=== PATIENT | male | born 2000 | race Caucasian/White ===

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

== ENCOUNTER 2023-03-09 13:15 | Emergency (ER) | payer SELFPAY ==
--- OUTSIDE RECORDS SUMMARY | 2023-03-09 13:18 | XMS REPORT | Continuity of Care Document ---
:2000 Author Organization [facility] t Address [address] [place] [address] Care Team Providers Name Role Phone Unavailable Unavailable Unavailable Payers Payer Name Policy Type Policy Number Effective Date Expiration Date S ource Problems This patient has no known problems. Allergies, Adverse Reactions, Alerts Allergy Allergy Status Severity Reaction(s) Onset Inactive Treating Comm ents Source Name Type Date Date Clinician Penicill DA Active U [facility] ins 09-16 [facility] 00:00: [facility] [place] Medications This patient has no known medications. Procedures This patient has no known procedures. Results This patient has no known results. Notes Date/Time Note Provider Source 2018-09-17 10:49:00-00:00 [id number] [facility] [address], [place] [address] PATIENT NAME: KEVIN CHOWDARY ADMIT DATE: 09/16/18 ACCOUNT NO: [id number] ROOM NO: F.5062 AGE: 18 SEX: M ADMITTING PHYSICIAN: Radha Villalpando MD ATTENDING PHYSICIAN: Radha Villalpando MD DATE: 09/17/2018 PEDIATRIC OTOLARYNGOLOGY PROGRESS NOTE POSTOPERATIVE DAY #1 BRIEF HISTORY: Kevin has don e well overnight after incision and drainage of his very large nearly obstructin g right peritonsillar abscess yesterday evening. He feels vastly better, is swal lowing well now and has really needed very little in the way of pain medicines. PHYSICAL EXAMINATION: There is still some fullne ss on the right, but he has a vastly better airway and now he is swall owing all secretions and he is healing well. His vital signs are stable and he is afebr ile. IMPRESSION: Excellent postoperative course, stat us post incision and drainage of a very large right peritonsillar abscess. PLAN: He can be discharged today after his next dose of dexamethasone. He should go home on oral clindamycin to complete a 10-day course. I have recommended follow up in my office in a month's time and his parents have our contact phone number. He can resume normal activ ities and normal diet as tolerated. Dictated By: Dallas Dinero III, MD WT: PN:MEGHA/ELSA. Conf#: [id number]/DID#: [id number] Authenticated by Dallas Dinero MD On 09/29/19 06:10:52 PM at 1811 PATIENT NAME: KEVIN CHOWDARY ACCOUNT #: [id number] 2018-09-16 17:01:00-00:00 [id number] [facility] [address] [address] PATIENT NAME: KEVIN CHOWDARY ADMIT DATE: 09/16/18 ACCOUNT NO: [id number] ROOM NO: Replaced By [facility] AGE: 18 SEX: M ADMITTING PHYSICIAN: Radha Villalpando MD ATTENDING PHYSICIAN: Radha Villalpando MD OPERATION DATE: 09/16/2018 PREOPERATIVE DIAGNOSIS: Large right peritonsilla r abscess. POSTOPERATIVE DIAGNOSIS: Large right peritonsill ar abscess. PROCEDURE PERFORMED: Incision and drainage of ri ght peritonsillar abscess. SURGEON: Dallas Dinero III, MD APPLIANCE REPAIRER: ANESTHESIA: General anesthesia. COMPLICATIONS: No complications. ESTIMATED BLOOD LOSS: Less than 5 mL. SPECIMENS: Aerobic culture, right peritonsillar abscess. INDICATIONS: The patient is a 18-year-old with a 5- to 8-day history of progressively worsening sore throat. He was star roe on Zithromax, but did not improve. He was evaluated at the [facility] in [place], but none of the 3 ear, nose, and throat surgeons in [place] were available to care for this youngster. Therefore, he was tr ansferred to the [facility]. A preoperative CT scan showed a large right peritonsillar abscess. He has not had a history of recurring t onsillitis or tonsil problems in the past. FINDINGS: Huge right peritonsillar abscess that was already slightly draining with a necrotic right tonsil. His opposite tonsi l was rather normal. He did have some impending airway issues with the size of this abscess. Large right peritonsillar abscess with nearly compromised or opharynx. PROCEDURE IN DETAIL: After satisfactory inductio n of general anesthesia and endotracheal intubation, he was draped in the us ual fashion. The McIvor mouth gag was inserted and suspended. A 1% lidocaine w ith 1:100,000 epinephrine was infiltrated in the right superior anterior perit onsillar area. Using a 15 blade, a 1-cm incision was m ruthie in the right anterior superior tonsillar pillar area. Using a gently curved packed clamp, this w as probed and immediately a copious amount of mucopurulent secretions were o btained. These were cultured. The abscess cavity and oral cavity were copiousl y irrigated with saline solution. Jack sump tube was passed thr ough the esophagus into the stomach to PATIENT NAME: KEVIN CHOWDARY ACCOUNT #: [id number] drain stomach contents. Good hemostasis was pres ent. He was awakened from general anesthesia and extubated in the operating room. He tolerated the procedure well. It should be noted that before going to the oper ating room, he received intravenous antibiotics and dexamethasone. Dictated By: Dallas Dinero III, MD WT: OP:MEGHA/SHABNAMTAZ Conf#: [id number]/DID#: [id number] Authenticated by Dallas Dinero MD On 09/29/19 06:10:42 PM at 1811 PATIENT NAME: KEVIN CHOWDARY ACCOUNT #: [id number] 2018-09-16 16:21:00-00:00 [id number] [facility] [address], [place] [address] PATIENT NAME: KEVIN CHOWDARY ADMIT DATE: 09/16/18 ACCOUNT NO: [id number] ROOM NO: F.5062 AGE: 18 SEX: M ADMITTING PHYSICIAN: Radha Villalpando MD ATTENDING PHYSICIAN: Radha Villalpando MD CONSULTATION DATE: 09/16/2018 CONSULTING PHYSICIAN: Dallas Dinero III, MD PEDIATRIC OTOLARYNGOLOGY CONSULTATION CHIEF COMPLAINT: Sore throat and difficulty swal lowing. HISTORY OF PRESENT ILLNESS: The patient is a 18- year-old with a 5-day history of gradually worsening sore throat and d ifficulty swallowing. He was seen by a physician in the [facility] and started o n azithromycin or Zithromax a couple of days ago with no improvement. When he was not improving, he was seen at the hospital facility in [place] , [facility]. He was assessed there and found to have a right peritonsillar ab scess by CT scan. Local ear, nose, and throat surgeons of which there are 3 i n the [facility] were called, but none of them appeared to be availabl e for this procedure. Therefore, he was transferred to the [facility]. PAST MEDICAL HISTORY: There is no significant pa st history of recurring sore throats. ____ in the hospital otherwise and no o ther ongoing illnesses. PAST SURGICAL HISTORY: Unremarkable exce pt for a knee reconstruction procedure in July 2018 that has gone well and he had n o anesthetic problems. MEDICATIONS: He had a dose of vancomycin in [place] and a dose of clindamycin here with dexamethasone. ALLERGIES: NONE, BUT THERE IS A FAMILIAL HISTORY OF PENICILLIN ALLERGY. REVIEW OF SYSTEMS: Unremarkable. PHYSICAL EXAMINATION: GENERAL: He was drooling, but had no airway prob lems. VITAL SIGNS: Stable. He has been ____. HEENT: Examination of ears and nose are unremark able. Mouth, he has tonsillar enlargement with a bulging right tonsil and oral secretions. NECK: Without adenopathy or masses. LUNGS: Clear to auscultation. HEART: Regular rate and rhythm. ABDOMEN: Soft and nontender. There are many aspe cts of his examination were unremarkable. ASSESSMENT: PATIENT NAME: KEVIN CHOWDARY ACCOUNT #: [id number] 1. Right peritonsillar abscess with no past hist ory of recurring abscess or tonsillitis. Recommendations are for incision an d drainage on an urgent or emergent schedule. 2. Intravenous clindamycin with postoperative do ses and a few more doses of Decadron. 3. This has been discussed with his family and c onsent was obtained over the phone from his father who was not present at the hospital since his father is his legal guardian. Dictated By: Dallas Dinero III, MD WT: CON:MEGHA/ELSA. Conf#: [id number]/DID#: [id number] Authenticated by Dallas Dinero MD On 09/29/19 06:10:46 PM at 1811 PATIENT NAME: KEVIN CHOWDARY ACCOUNT #: F [id number]
[2023-03-09] MEDS ORDERED: ONDANSETRON 4 MG/2 ML VIAL ONE (14:04)
[2023-03-09] MEDS ORDERED: NA CHLORIDE 0.9% 1,000 ML ONE (14:04)
[2023-03-09 14:12] LABS: Absolute Lymphocytes (CBC) 1.7 K/uL (0.7-4.9); Hematocrit 44.6 % (39.6-49.0); Lymphocytes % 20.4 % (15.3-44.8); MCV 84.2 fL (80-100); MPV 8.3 fL (7.6-11.3); RBC Red Blood Cell Count 5.29 M/uL (4.33-5.43)
[2023-03-09 14:18] LABS: Specific Gravity < 1.005 (1.005-1.030); Urine Bacteria None Seen /HPF (<20); Urine Bilirubin NEGATIVE (Negative); Urine Blood Negative (Negative); Urine Clarity Turbid (Clear); Urine Color Colorless (Yellow); Urine Glucose NEGATIVE (Negative); Urine Mucus Slight /HPF (None Seen); Urine Protein NEGATIVE (Negative); Urine RBC <5 /HPF (None Seen); Urine Urobilinogen Normal (Normal); Urine pH 6.5 (5.0-7.0)
[2023-03-09 14:27] LABS: Albumin 4.1 g/dL (3.4-5.0); Bilirubin Total 0.4 mg/dL (0.2-1.0); Potassium 3.9 mEq/L (3.5-5.1); Protein, Total 8.3 g/dL (6.4-8.2)
--- NOTE | 2023-03-09 16:51 | ER ---
Nurse's Notes [facility] Name: Kevin Tinoco Age: 22 yrs Sex: Male : 2000 Arrival Date: 03/09/2023 Time: 13:15 Bed 9 Private MD: Diagnosis: Vomiting;Diarrhea, unspecified Presentation: 03/09 13:29 Chief complaint: Patient states: N/V/D x3 DAYS. Coronavirus screen: At this time, the bp client does not indicate any symptoms associated with coronavirus-19. Ebola Screen: No symptoms or risks identified at this time. Initial Sepsis Screen: Does the patient meet any 2 criteria? No. Patient's initial sepsis screen is negative. Does the patient have a suspected source of infection? No. Patient's initial sepsis screen is negative. Risk Assessment: Do you want to hurt yourself or someone else? Patient reports no desire to harm self or others. Onset of symptoms is unknown. 13:29 Method Of Arrival: Ambulatory bp 13:29 Acuity: STERLING 3 bp Triage Assessment: 13:30 General: Appears in no apparent distress. Behavior is calm, cooperative, appropriate bp for age. Pain: Denies pain. EENT: No deficits noted. Neuro: No deficits noted. Cardiovascular: No deficits noted. Respiratory: No deficits noted. GI: Reports diarrhea, nausea, vomiting. : No signs and/or symptoms were reported regarding the genitourinary system. Derm: No deficits noted. Musculoskeletal: No deficits noted. Historical: - Allergies: 13:30 PENICILLINS; bp - PMHx: 13:30 ADD/ADHD; bp - Immunization history:: Adult Immunizations up to date. - Social history:: Smoking status: Patient denies any tobacco usage or history of. Screenin:12 [facility] ED Fall Risk Assessment (Adult) History of falling in the last 3 months, cm10 including since admission No falls in past 3 months (0 pts) Confusion or Disorientation No (0 pts) Intoxicated or Sedated No (0 pts) Impaired Gait No (0 pts) Mobility Assist Device Used No (0 pt) Altered Elimination No (0 pt) Score/Fall Risk Level 0 - 2 = Low Risk Oriented to surroundings, Maintained a safe environment. Abuse screen: Denies threats or abuse. Denies injuries from another. Nutritional screening: No deficits noted. Tuberculosis screening: No symptoms or risk factors identified. Assessment: 14:10 General: Appears in no apparent distress. comfortable, Behavior is calm, cooperative. cm10 Neuro: No deficits noted. Level of Consciousness is awake, alert, obeys commands, Oriented to person, place, time, situation. Respiratory: No deficits noted. Airway is patent Respiratory effort is even, unlabored, Respiratory pattern is regular, symmetrical. GI: Abdomen is non-distended, Reports diarrhea, nausea, vomiting. 14:59 Reassessment: No changes from previously documented assessment. Patient and/or family cm10 updated on plan of care and expected duration. Pain level reassessed. Patient is alert, oriented x 3, equal unlabored respirations, skin warm/dry/pink. Patient states feeling better. Patient states symptoms have improved. Vital Signs: 13:29 BP 127 / 76; Pulse 61; Resp 16; Temp 97.7; Pulse Ox 99% ; bp 13:29 Weight 95.25 kg; Height 5 ft. 10 in. ; bp 14:45 BP 107 / 67; Pulse 64; Resp 16; Pulse Ox 100% on R/A; cm10 17:05 BP 120 / 71; Pulse 55; Resp 16; Pulse Ox 100% on R/A; Pain 0/10; cm10 13:29 Body Mass Index 30.13 (95.25 kg, 177.8 cm) bp 17:05 Pain Scale: Adult cm10 ED Course: 13:18 Patient arrived in ED. im 13:18 Alvin Cabral PA is PHCP. [facility] 13:18 Krystian Smith MD is Attending Physician. [facility] 13:30 Triage completed. bp 13:30 Arm band placed on. bp 13:53 Nicole Du, RN is Primary Nurse. cm10 14:02 CBC with Diff Sent. ds4 14:02 CMP Sent. ds4 14:02 Lipase Sent. ds4 14:09 Urinalysis w/ reflexes Sent. cm10 14:09 Initial lab(s) drawn, by ED staff, sent to lab. Urine collected: clean catch specimen. cm10 Inserted saline lock: 20 gauge in right antecubital area, using aseptic technique. 14:12 Patient has correct armband on for positive identification. Placed in gown. Bed in low cm10 position. Call light in reach. Side rails up X 1. Pulse ox on. NIBP on. Door closed. Lights dimmed. Warm blanket given. 17:06 No provider procedures requiring assistance completed. IV discontinued, intact, cm10 bleeding controlled, No redness/swelling at site. Pressure dressing applied. Administered Medications: 14:09 Drug: NS 0.9% IV 1000 ml Route: IV; Rate: 1 bolus; Site: right antecubital; cm10 14:59 Follow up: Response: No adverse reaction; IV Status: Completed infusion; IV Intake: cm10 1000ml 14:09 Drug: Ondansetron IVP 4 mg Route: IVP; Site: right antecubital; cm10 14:59 Follow up: Response: No adverse reaction; Nausea is decreased cm10 Medication: 14:12 VIS not applicable for this client. cm10 Intake: 14:59 IV: 1000ml; Total: 1000ml. cm10 Outcome: 16:51 Discharge ordered by MD. jesus 17:06 Discharged to home ambulatory. cm10 17:06 Condition: good 17:06 Discharge instructions given to patient, Instructed on discharge instructions, follow up and referral plans. medication usage, Demonstrated understanding of instructions, follow-up care, medications, Prescriptions given X 2. 17:06 Patient left the ED. cm10 Signatures: Alvin Cabral PA PA jmm Swanson, Donovan ds4 Scot Harrison, RN RN Aretha Navarrete Clarissa, RN RN cm10
--- NOTE | 2023-03-09 16:51 | EDPHYS ---
Physician Documentation [facility] Name: Kevin Tinoco Age: 22 yrs Sex: Male : 2000 Arrival Date: 03/09/2023 Time: 13:15 Bed 9 Private MD: ED Physician Krystian Smith HPI: 03/09 13:24 This 22 yrs old Male presents to ER via Ambulatory with complaints of jmm Nausea/Vomiting/Diarrhea. 13:24 The patient presents to the emergency department with nausea, vomiting, diarrhea. jmm Onset: The symptoms/episode began/occurred gradually, 2 day(s) ago. Possible causes: unknown. The symptoms are aggravated by nothing. The symptoms are alleviated by nothing. Associated signs and symptoms: Pertinent negatives: abdominal pain, fever. The patient has not experienced similar symptoms in the past. Historical: - Allergies: 13:30 PENICILLINS; bp - PMHx: 13:30 ADD/ADHD; bp - Immunization history:: Adult Immunizations up to date. - Social history:: Smoking status: Patient denies any tobacco usage or history of. ROS: 13:24 Constitutional: Negative for fever, chills, and weight loss, Cardiovascular: Negative jmm for chest pain, palpitations, and edema, Respiratory: Negative for shortness of breath, cough, wheezing, and pleuritic chest pain. 13:24 Abdomen/GI: Positive for abdominal pain, nausea, vomiting, and diarrhea. 13:24 All other systems are negative. Exam: 13:24 Constitutional: This is a well developed, well nourished patient who is awake, alert, jmm and in no acute distress. Head/Face: atraumatic. Eyes: EOMI, no conjunctival erythema appreciated ENT: Moist Mucus Membranes Neck: Trachea midline, Supple Chest/axilla: Normal chest wall appearance and motion. Cardiovascular: Regular rate and rhythm. No edema appreciated Respiratory: Normal respirations, no respiratory distress appreciated 13:24 Back: Normal ROM Skin: General appearance color normal MS/ Extremity: Moves all extremities, no obvious deformities appreciated, no edema noted to the lower extremities Neuro: Awake and alert Psych: Behavior is normal, Mood is normal, Patient is cooperative and pleasant 13:24 Abdomen/GI: Inspection: abdomen appears normal, Bowel sounds: normal, Palpation: soft, nontender, in all quadrants. Vital Signs: 13:29 BP 127 / 76; Pulse 61; Resp 16; Temp 97.7; Pulse Ox 99% ; bp 13:29 Weight 95.25 kg; Height 5 ft. 10 in. ; bp 14:45 BP 107 / 67; Pulse 64; Resp 16; Pulse Ox 100% on R/A; cm10 17:05 BP 120 / 71; Pulse 55; Resp 16; Pulse Ox 100% on R/A; Pain 0/10; cm10 13:29 Body Mass Index 30.13 (95.25 kg, 177.8 cm) bp 17:05 Pain Scale: Adult cm10 MDM: 13:24 Patient medically screened. [facility] 14:35 Differential diagnosis: Nonspecific abd pain, gastritis, viral gastroenteritis. Data [facility] reviewed: vital signs, nurses notes, lab test result(s). I considered the following discharge prescriptions or medication management in the emergency department Medications were administered in the Emergency Department. See MAR. Counseling: I had a detailed discussion with the patient and/or guardian regarding: the historical points, exam findings, and any diagnostic results supporting the discharge/admit diagnosis, lab results, the need for outpatient follow up, to return to the emergency department if symptoms worsen or persist or if there are any questions or concerns that arise at home. 14:35 ED course: Patient given early appendicitis return precautions. No abdominal pain [facility] currently. Tolerate PO in the ED. 03/09 13:24 Order name: CBC with Diff; Complete Time: 14:34 [facility] 03/09 13:24 Order name: CMP; Complete Time: 14:34 [facility] 03/09 13:24 Order name: Lipase; Complete Time: 14:34 [facility] 03/09 13:24 Order name: Urinalysis w/ reflexes; Complete Time: 14:34 [facility] 03/09 13:24 Order name: IV Saline Lock; Complete Time: 14:02 [facility] 03/09 13:24 Order name: Labs collected and sent; Complete Time: 14:02 [facility] Administered Medications: 14:09 Drug: NS 0.9% IV 1000 ml Route: IV; Rate: 1 bolus; Site: right antecubital; cm10 14:59 Follow up: Response: No adverse reaction; IV Status: Completed infusion; IV Intake: cm10 1000ml 14:09 Drug: Ondansetron IVP 4 mg Route: IVP; Site: right antecubital; cm10 14:59 Follow up: Response: No adverse reaction; Nausea is decreased cm10 Disposition Summary: 03/09/23 16:51 Discharge Ordered Location: Home [facility] Condition: Stable [facility] Diagnosis - Vomiting jmm - Diarrhea, unspecified jmm Followup: [facility] - With: Private Physician - When: 2 - 3 days - Reason: Recheck today's complaints, Continuance of care, Re-evaluation by your physician Discharge Instructions: - Discharge Summary Sheet [facility] - Food Choices to Help Relieve Diarrhea, Adult jm - Diarrhea, Adult jmm - Vomiting, Adult [facility] Forms: - Work release form [facility] - Medication Reconciliation Form [facility] - Thank You Letter [facility] - Antibiotic Education [facility] - Prescription Opioid Use [facility] - [email or web address] [facility] Prescriptions: - ondansetron 4 mg Oral Tablet,disintegrating - take 1 tablet by ORAL route every 4 to 6 hours As needed; 30 tablet; Refills: [facility] 0, Product Selection Permitted - dicyclomine 20 mg Oral Tablet - take 1 tablet by ORAL route 4 times per day As needed; 30 tablet; Refills: 0, [facility] Product Selection Permitted Signatures: Dispatcher [employer] Alvin Min PA PA jmm Peltier, Brian, RN RN Nicole Fraire RN RN cm10
[2023-03-09 17:28] VITALS: TEMP 97.7
[2023-03-09 17:31] VITALS: O2SAT 100
[2023-03-09 17:33] VITALS: BP 120/71
== END 2023-03-09 17:06 | disposition home or self-care (01) ==
LOC: ER 13:15
DX: R11.2 Nausea with vomiting, unspecified (principal); R19.7 Diarrhea, unspecified
CPT/HCPCS: 36415; 80053; 81001; 83690; 85025; J2405; J7030

== ENCOUNTER 2023-05-04 16:25 | Emergency (ER) | payer SELFPAY ==
--- OUTSIDE RECORDS SUMMARY | 2023-05-04 16:27 | XMS REPORT | Continuity of Care Document ---
:2000 Author Organization [facility] t Address [address] [place] [address] Care Team Providers Name Role Phone Unavailable Unavailable Unavailable Payers Payer Name Policy Type Policy Number Effective Date Expiration Date S ource Problems This patient has no known problems. Allergies, Adverse Reactions, Alerts Allergy Allergy Status Severity Reaction(s) Onset Inactive Treating Comm ents Source Name Type Date Date Clinician Penicill DA Active U [facility] ins 09-16 [facility]: [facility] [place] Medications This patient has no known medications. Procedures This patient has no known procedures. Results This patient has no known results. Notes Date/Time Note Provider Source 2018-09-17 10:49:00-00:00 [id number] [facility] [address] [place], [place] [address] PATIENT NAME: KEVIN CHOWDARY ADMIT DATE: 09/16/18 ACCOUNT NO: [id number] ROOM NO: F.5062 AGE: 18 SEX: M [...] Dallas Dinero III, MD WT: PN:MEGHA/ELSA. Conf#: [id number]/DID#: [id number] Authenticated by Dallas Dinero MD On 09/29/19 06:10:52 PM at 1811 PATIENT NAME: KEVIN CHOWDARY ACCOUNT #: F [id number] 2018-09-16 17:01:00-00:00 [id number] [facility] [address] [address] PATIENT NAME: KEVIN CHOWDARY ADMIT DATE: 09/16/18 ACCOUNT NO: [id number] ROOM NO: [facility] AGE: 18 SEX: M ADMITTING PHYSICIAN: Radha Villalpando MD ATTENDING PHYSICIAN: Radha Villalpando MD OPERATION DATE: 09/16/2018 PREOPERATIVE DIAGNOSIS: Large right peritonsilla r abscess. POSTOPERATIVE DIAGNOSIS: Large right peritonsill ar abscess. PROCEDURE PERFORMED: Incision and drainage of ri ght peritonsillar abscess. SURGEON: Dallas Dinero III, MD FINGERNAIL SCULPTURER: ANESTHESIA: General anesthesia. COMPLICATIONS: No complications. ESTIMATED BLOOD LOSS: Less than 5 mL. SPECIMENS: Aerobic culture, right peritonsillar abscess. INDICATIONS: The patient is a 18-year-old with a 5- to 8-day history of progressively worsening sore throat. He was star roe on Zithromax, but did not improve. He was evaluated at the [facility] in [place], but none of the 3 ear, nose, and throat surgeons in [place] were available to care for this youngster. Therefore, he was tr ansferred to the [facility]. A preoperative CT scan showed a large [...] were copiousl y irrigated with saline solution. [place] sump tube was passed thr ough the esophagus into the stomach to PATIENT NAME: KEVIN CHOWDARY ACCOUNT #: [id number] drain stomach contents. Good hemostasis was pres ent. He was awakened from general anesthesia and extubated in the operating room. He tolerated the procedure well. It should be noted that before going to the oper ating room, he received intravenous antibiotics and dexamethasone. Dictated By: Dallas Dinero III, MD WT: OP:MEGHA/SHABNAMTAZ Conf#: [id number]/DID#: [id number] Authenticated by Dallas Dinero MD On 09/29/19 06:10:42 PM at 1811 PATIENT NAME: KEVIN CHOWDARY ACCOUNT #: [id number] 2018-09-16 16:21:00-00:00 [id number] [facility] [address], [place] [address] PATIENT NAME: KEVIN CHOWDARY ADMIT DATE: 09/16/18 ACCOUNT NO: [id number] ROOM NO: F.5062 AGE: 18 SEX: M [...] was seen by a physician in the [facility] and started o n azithromycin or Zithromax a couple of days ago with no improvement. When he was not improving, he was seen at the hospital facility in [place] , [facility]. He was assessed there and found to have a right peritonsillar ab scess by CT scan. Local ear, nose, and throat surgeons of which there are 3 i n the [facility] were called, but none of them appeared to be availabl e for this procedure. Therefore, he was transferred to the [facility]. PAST MEDICAL HISTORY: There is no significant pa st history of recurring sore throats. ____ in the hospital otherwise and no o ther ongoing illnesses. PAST SURGICAL HISTORY: Unremarkable exce pt for a knee reconstruction procedure in July 2018 that has gone well and he had n o anesthetic problems. MEDICATIONS: He had a dose of vancomycin in [place] and a dose of clindamycin here with [...] PATIENT NAME: KEVIN CHOWDARY ACCOUNT #: [id number] 1. Right peritonsillar abscess with no past [...] Dallas Dinero III, MD WT: CON:MEGHA/ELSA. Conf#: [id number]/DID#: [id number] Authenticated by Dallas Dinero MD On 09/29/19 06:10:46 PM at 1811 PATIENT NAME: KEVIN CHOWDARY ACCOUNT #: F [id number]
--- NOTE | 2023-05-04 17:13 | ER ---
Nurse's Notes [facility] Name: Kevin Tinoco Age: 23 yrs Sex: Male : 2000 Arrival Date: 05/04/2023 Time: 16:25 Bed DIS3 Private MD: Diagnosis: Dental caries, unspecified-pain Presentation: 05/04 16:30 Chief complaint: Patient states: "my left top molars have a crack and a hole and it aa5 just started giving me issues 2 days ago when I drink sugar drinks or cold drinks". Coronavirus screen: At this time, the client does not indicate any symptoms associated with coronavirus-19. Ebola Screen: Patient denies travel to an Ebola-affected area in the 21 days before illness onset. Initial Sepsis Screen: Does the patient meet any 2 criteria? No. Patient's initial sepsis screen is negative. Does the patient have a suspected source of infection? No. Patient's initial sepsis screen is negative. Risk Assessment: Do you want to hurt yourself or someone else? Patient reports no desire to harm self or others. Onset of symptoms was April 2023. 16:30 Acuity: STERLING 5 aa5 16:30 Method Of Arrival: Ambulatory aa5 Historical: - Allergies: 16:31 PENICILLINS; aa5 - PMHx: 16:31 ADD/ADHD; aa5 - PSHx: 16:31 R ACL repair; aa5 - Immunization history:: Adult Immunizations unknown. - Social history:: Smoking status: Patient denies any tobacco usage or history of. Screenin:35 [facility] ED Fall Risk Assessment (Adult) Score/Fall Risk Level 0 - 2 = Low Risk ll1 Oriented to surroundings, Maintained a safe environment, Educated pt \\T\\ family on fall prevention, incl call for assistance when getting out of bed, Hourly rounding (assess needs \\T\\ fall precautionary measures) done. Abuse screen: Denies threats or abuse. Nutritional screening: No deficits noted. Tuberculosis screening: No symptoms or risk factors identified. Assessment: 17:35 General: Appears in no apparent distress. Behavior is calm, cooperative, appropriate ll1 for age. Pain: Complains of pain in upper left third molar Quality of pain is described as aching. EENT: Reports pain in left cheek. Vital Signs: 16:30 BP 125 / 74; Pulse 66; Resp 18 S; Temp 98.2(TE); Pulse Ox 98% on R/A; Weight 92.99 kg aa5 (R); Height 5 ft. 10 in. (R); 16:30 Body Mass Index 29.41 (92.99 kg, 177.8 cm) [facility] ED Course: 16:27 Patient arrived in ED. im 16:31 Triage completed. aa5 16:31 Arm band placed on. aa5 16:32 Bryon Arredondo MD is Attending Physician. [facility] 17:12 Thompson Villavicencio DDS is Referral Physician. [facility] 17:35 Ayden Grullon, RN is Primary Nurse. ll1 17:36 Patient has correct armband on for positive identification. Bed in low position. ll1 Provided Education on: n/a. 17:36 No provider procedures requiring assistance completed. Patient did not have IV access ll1 during this emergency room visit. Administered Medications: 17:33 Drug: Cephalexin PO 500 mg Route: PO; ll1 17:37 Follow up: Response: No adverse reaction ll1 17:33 Drug: Ibuprofen PO 800 mg Route: PO; ll1 17:37 Follow up: Response: No adverse reaction 1 Medication: 17:36 VIS not applicable for this client. ll1 Outcome: 17:12 Discharge ordered by . [facility] 17:36 Discharged to home ambulatory. ll1 17:36 Condition: stable 17:36 Discharge instructions given to patient, Instructed on discharge instructions, follow up and referral plans. no drinking with medication, no driving heavy equipment, medication usage, Demonstrated understanding of instructions, follow-up care, medications, Prescriptions given X 3. 17:37 Patient left the ED. ll1 Signatures: Bryon Arredondo MD MD cha Calderon, Audri, RN RN 5 Ayden Grullon, SAMIR RN 1 Aretha Carvalho
--- NOTE | 2023-05-04 17:13 | EDPHYS ---
Physician Documentation [facility] Name: Kevin Tinoco Age: 23 yrs Sex: Male : 2000 Arrival Date: 05/04/2023 Time: 16:25 Bed DIS3 Private MD: ED Physician Bryon Arredondo HPI: 05/04 17:05 This 23 yrs old Male presents to ER via Ambulatory with complaints of ana Toothache. 17:05 The patient presents with broken tooth/teeth, pain, redness, swelling. The problem is ana located in the left buccal mucosa. Onset: The symptoms/episode began/occurred 3 day(s) ago. Duration: The symptoms are continuous, and are steadily getting worse. Modifying factors: The symptoms are alleviated by nothing, the symptoms are aggravated by chewing, talking. Associated signs and symptoms: The patient has no apparent associated signs or symptoms. Severity of symptoms: At their worst the symptoms were mild, moderate, in the emergency department the symptoms are unchanged. The patient has not experienced similar symptoms in the past. Historical: - Allergies: 16:31 PENICILLINS; aa5 - PMHx: 16:31 ADD/ADHD; aa5 - PSHx: 16:31 R ACL repair; aa5 - Immunization history:: Adult Immunizations unknown. - Social history:: Smoking status: Patient denies any tobacco usage or history of. ROS: 17:06 Constitutional: Negative for fever, chills, and weight loss, Eyes: Negative for injury, ana pain, redness, and discharge, Neck: Negative for injury, pain, and swelling, Cardiovascular: Negative for chest pain, palpitations, and edema, Respiratory: Negative for shortness of breath, cough, wheezing, and pleuritic chest pain, Abdomen/GI: Negative for abdominal pain, nausea, vomiting, diarrhea, and constipation, Back: Negative for injury and pain, : Negative for injury, bleeding, discharge, and swelling, MS/Extremity: Negative for injury and deformity, Skin: Negative for injury, rash, and discoloration, Neuro: Negative for headache, weakness, numbness, tingling, and seizure, Psych: Negative for depression, anxiety, suicide ideation, homicidal ideation, and hallucinations, Allergy/Immunology: Negative for hives, rash, and allergies, Endocrine: Negative for neck swelling, polydipsia, polyuria, polyphagia, and marked weight changes, Hematologic/Lymphatic: Negative for swollen nodes, abnormal bleeding, and unusual bruising. 17:06 ENT: Positive for Gum pain Exam: 17:06 Constitutional: This is a well developed, well nourished patient who is awake, alert, ana and in no acute distress. Head/Face: Normocephalic, atraumatic. Eyes: Pupils equal round and reactive to light, extra-ocular motions intact. Lids and lashes normal. Conjunctiva and sclera are non-icteric and not injected. Cornea within normal limits. Periorbital areas with no swelling, redness, or edema. Neck: Trachea midline, no thyromegaly or masses palpated, and no cervical lymphadenopathy. Supple, full range of motion without nuchal rigidity, or vertebral point tenderness. No Meningismus. Chest/axilla: Normal chest wall appearance and motion. Nontender with no deformity. No lesions are appreciated. Cardiovascular: Regular rate and rhythm with a normal S1 and S2. No gallops, murmurs, or rubs. Normal PMI, no JVD. No pulse deficits. Respiratory: Lungs have equal breath sounds bilaterally, clear to auscultation and percussion. No rales, rhonchi or wheezes noted. No increased work of breathing, no retractions or nasal flaring. Abdomen/GI: Soft, non-tender, with normal bowel sounds. No distension or tympany. No guarding or rebound. No evidence of tenderness throughout. Back: No spinal tenderness. No costovertebral tenderness. Full range of motion. Skin: Warm, dry with normal turgor. Normal color with no rashes, no lesions, and no evidence of cellulitis. MS/ Extremity: Pulses equal, no cyanosis. Neurovascular intact. Full, normal range of motion. Neuro: Awake and alert, GCS 15, oriented to person, place, time, and situation. Cranial nerves II-XII grossly intact. Motor strength 5/5 in all extremities. Sensory grossly intact. Cerebellar exam normal. Normal gait. Psych: Awake, alert, with orientation to person, place and time. Behavior, mood, and affect are within normal limits. 17:06 ENT: Mouth: Oral mucosa: normal, Gums: noted to have cellulitis, reddened, on the upper left second molar and upper left third molar, Posterior pharynx: is normal, no erythema, no exudate, no peritonsilar mass, no pooling of secretions, no swelling, normal tonsil apperance, normal sized tonsils, normal uvula appearance, normal uvula size, Airway: normal, no evidence of obstruction, Tonsils: are normal in appearance, Uvula: normal, swelling, that is mild, erythema, that is mild, exudate, is not appreciated. Vital Signs: 16:30 BP 125 / 74; Pulse 66; Resp 18 S; Temp 98.2(TE); Pulse Ox 98% on R/A; Weight 92.99 kg aa5 (R); Height 5 ft. 10 in. (R); 16:30 Body Mass Index 29.41 (92.99 kg, 177.8 cm) aa5 MDM: 16:32 Patient medically screened. ana 17:08 Differential diagnosis: dental caries, gingivitis, dental abscess, pericoronitis. Data ana reviewed: vital signs, nurses notes. Consideration of Admission/Observation Escalation of care including admission/observation considered. I considered the following discharge prescriptions or medication management in the emergency department Medications were administered in the Emergency Department. See MAR. Test considered but Not performed: Labs: no labs. Historians other than the Patient: none. Care significantly affected by the following chronic conditions: add,adhd. Counseling: I had a detailed discussion with the patient and/or guardian regarding the historical points, exam findings, and any diagnostic results supporting the discharge/admit diagnosis. Administered Medications: 17:33 Drug: Cephalexin PO 500 mg Route: PO; ll1 17:37 Follow up: Response: No adverse reaction ll1 17:33 Drug: Ibuprofen PO 800 mg Route: PO; ll1 17:37 Follow up: Response: No adverse reaction ll1 Disposition Summary: 05/04/23 17:12 Discharge Ordered Location: Home ana Problem: new ana Symptoms: have improved ana Condition: Stable ana Diagnosis - Dental caries, unspecified - pain ana Followup: ana - With: Private Physician - When: 1 - 2 days - Reason: Recheck today's complaints, Continuance of care, Re-evaluation by your physician Followup: ana - With: Thompson Villavicencio DDS - When: 1 - 2 days - Reason: Recheck today's complaints, Re-evaluation by your physician Discharge Instructions: - Discharge Summary Sheet ana - Dental Caries, Adult ana - Dental Pain ana - Dental Pain, Esbq-yk-Oysp ana - Diet and Dental Disease ana - Dental Caries, Adult, Kvjh-yo-Zhuw [facility] Forms: - Medication Reconciliation Form ana - Thank You Letter ana - Antibiotic Education ana - Prescription Opioid Use ana - Patient Portal Instructions ana - Leadership Thank You Letter ana - Work release form ll1 Prescriptions: - acetaminophen-codeine 300-30 mg Oral tablet - take 2 tablet by ORAL route every 6 hours; 16 tablet; Refills: 0, Product [facility] Selection Permitted - Cephalexin 500 mg Oral Capsule - take 1 capsule by ORAL route every 6 hours for 10 days; 40 capsule; Refills: 0, [facility] Product Selection Permitted - Ibuprofen 600 mg Oral Tablet - take 1 tablet by ORAL route every 6 hours As needed take with food; 30 tablet; [facility] Refills: 0, Product Selection Permitted Signatures: Bryon Arredondo MD MD cha Calderon, Audri, RN RN aa5 Ayden Grullon RN RN ll1
[2023-05-04] MEDS ORDERED: IBUPROFEN 400 MG TAB ONE (17:39)
[2023-05-04] MEDS ORDERED: CEPHALEXIN 250 MG CAP ONE (17:39)
[2023-05-04 18:00] VITALS: BP 125/74; TEMP 98.2; O2SAT 98
== END 2023-05-04 17:37 | disposition home or self-care (01) ==
LOC: ER 16:25
DX: K02.9 Dental caries, unspecified (principal); Z88.0 Allergy status to penicillin
CPT/HCPCS: 99283

== ENCOUNTER → 2023-11-23 | Emergency (ER) | payer SELFPAY ==
[~2023-11-23] MED LIST: ACETAMINOPHEN 500 MG TAB ONE; CEPHALEXIN 250 MG CAP ONE; IBUPROFEN 400 MG TAB ONE; ONDANSETRON 4 MG (ODT) TAB ONE
--- OUTSIDE RECORDS SUMMARY | 2023-11-23 20:42 | XMS REPORT | Continuity of Care Document ---
Author Name Unknown Address [address] [facility] [address] [place], [place] [id number] [place] [address] thconnect Address [address] [facility] [address] [place] [address] Care Team Providers Care Hemodialysis Patient Care Specialist Name Role Phone Unavailable Unavailable Unavailable Payers Payer Name Policy Type Policy Number Effective Date Expirati on Date Source Allergies, Adverse Reactions, Alerts Allergy Name Allergy Type Status Severity Reaction(s) Onset Date Inactive Date Treating Clinician Comments Source Penicill ins DA Active U 09-16 00:00: 00 [facility] Notes Date/Time Note Provider Source 2018-09-17 10:49:00 [id number] q+yUkZzPQVEuQ3x9IZy+biHFrhs0P ZjTFymq+YqomvDGLlTCATj8aCM1HugeC+4948-28-22X05:49 :[id number] [facility] [address] [place], [place] [address] PATIENT NAME: KEVIN CHOWDARY ADMIT DATE: 09/16/18ACCOUNT NO: [id number] ROOM NO: F.[id number] AGE: 18 SEX: M ADMITTING PHYSICIAN: Radha Villalpando MD ATTENDING PHYSICIAN: Radha Villalpando MD DATE: 09/17/2018 PEDIATRIC OTOLARYNGOLOGY PROGRESS NOTE POSTOPERATIVE DAY #1 BRIEF HISTORY: Kevin has done well overnight after incision and drainage of hisvery large nearly obstructing right peritonsillar abscess yesterday evening. Hefeels vastly better, is swallowing well now and has really needed very little inthe way of pain medicines. PHYSICAL EXAMINATION: There is still some fullness on the right, but he has avastly better airway and now he is swallowing all secretions and he is healingwell. His vital signs are stable and he is afebrile. IMPRESSION: Excellent postoperative course, status post incision and drainageof a very large right peritonsillar abscess. PLAN: He can be discharged today after his next dose of dexamethasone. Heshould go home on oral clindamycin to complete a 10-day course. I haverecommended follow up in my office in a month's time and his parents have ourcontact phone number. He can resume normal activities and normal diet astolerated. Dictated By: Dallas Dinero III, MD WT: PN:MEGHA/ELSA.NTSDD: 09/17/2018 10:49:42DT: 09/17/2018 14:17:24Conf#: [id number]/DID#: [id number] Authenticated by Dallas Dinero MD On 09/29/2018 06:10:52 PM at 1811 PATIENT NAME: KEVIN CHOWDARY [id number]:17:00F.[id number] ble for patient xftrDAQNNVKBJGTQRQ7093-33-51Q20:11:06 [facility] 2018-09-16 17:01:00 [id number] qvKH3aZGFCPwjQcEEja82CinOB0QD 56Ch6azv29+fM2f2GeDQwbmX1cUesBY/W6013-31-22G64:01 :[id number] [facility] [address] [place] [id number] PATIENT NAME: KEVIN CHOWDARY ADMIT DATE: 09/16/18ACCOUNT NO: [id number] ROOM NO: [id number] AGE: 18 SEX: M ADMITTING PHYSICIAN: Radha Villalpando MD ATTENDING PHYSICIAN: Radha Villalpando MD OPERATION DATE: 09/16/2018 PREOPERATIVE DIAGNOSIS: Large right peritonsillar abscess. POSTOPERATIVE DIAGNOSIS: Large right peritonsillar abscess. PROCEDURE PERFORMED: Incision and drainage of right peritonsillar abscess. SURGEON: Dallas Dinero III, MD [employer]AY [employer] SUPERVISOR: ANESTHESIA: General anesthesia. COMPLICATIONS: No complications. ESTIMATED BLOOD LOSS: Less than 5 mL. SPECIMENS: Aerobic culture, right peritonsillar abscess. INDICATIONS: The patient is a 18-year-old with a 5- to 8-day history ofprogressively worsening sore throat. He was started on Zithromax, but did notimprove. He was evaluated at the [facility] in [place],but none of the 3 ear, nose, and throat surgeons in [place] were availableto care for this youngster. Therefore, he was transferred to the [facility]. A preoperative CT scan showed a large right peritonsillarabscess. He has not had a history of recurring tonsillitis or tonsil problemsin the past. FINDINGS: Huge right peritonsillar abscess that was already slightly drainingwith a necrotic right tonsil. His opposite tonsil was rather normal. He didhave some impending airway issues with the size of this abscess. Large rightperitonsillar abscess with nearly compromised oropharynx. PROCEDURE IN DETAIL: After satisfactory induction of general anesthesia andendotracheal intubation, he was draped in the usual fashion. The McIvor mouthgag was inserted and suspended. A 1% lidocaine with 1:100,000 epinephrine wasinfiltrated in the right superior anterior peritonsillar area. Using a 15blade, a 1-cm incision was made in the right anterior superior tonsillar pillararea. Using a gently curved packed clamp, this was probed and immediately acopious amount of mucopurulent secretions were obtained. These were cultured. The abscess cavity and oral cavity were copiously irrigated with salinesolution. Shiloh sump tube was passed through the esophagus into the stomach to PATIENT NAME: KEVIN CHOWDARY drain stomach contents. Good hemostasis was present. He was awakened from general anesthesia and extubated in the operating room. Hetolerated the procedure well. It should be noted that before going to the operating room, he receivedintravenous antibiotics and dexamethasone. Dictated By: Dallas Dinero III, MD WT: OP:FJULIANN/ELSA.Sandhya/NTSDD: 09/16/2018 17:01:17DT: 09/16/2018 19:31:51Conf#: [id number]/DID#: [id number] Authenticated by Dallas Dinero MD On 09/29/2018 06:10:42 PM at 1811 PATIENT NAME: KEVIN CHOWDARY [id number]:31:00F.[id number] lable for patient duvpJPYIVNYFIDIOGJ5643-72-51Y81:10:55 [facility] 2018-09-16 16:21:00 [id number]/0 apOczZg7Wq8wn+cpxywepsQfN6w+2 2HSbzEkzRLtw1aoljsCLd2rQ19LmTvrqI8041-91-63X61:21 :[id number] [place] [address] PATIENT NAME: KEVIN CHOWDARY ADMIT DATE: 09/16/18ACCOUNT NO: [id number] ROOM NO: F.5062 AGE: 18 SEX: M ADMITTING PHYSICIAN: Radha Villalpando MD ATTENDING PHYSICIAN: Radha Villalpando MD CONSULTATION DATE: 09/16/2018 CONSULTING PHYSICIAN: Dallas Dinero III, MD PEDIATRIC OTOLARYNGOLOGY CONSULTATION CHIEF COMPLAINT: Sore throat and difficulty swallowing. HISTORY OF PRESENT ILLNESS: The patient is a 18-year-old with a 5-day historyof gradually worsening sore throat and difficulty swallowing. He was seen by aphysician in the [facility] and started on azithromycin or Zithromax acouple of days ago with no improvement. When he was not improving, he was [facility]at [facility]. He was assessedthere and found to have a right peritonsillar abscess by CT scan. Local ear,nose, and throat surgeons of which there are 3 in the [facility] werecalled, but none of them appeared to be available for this procedure. Therefore, he was transferred to the [facility]. PAST MEDICAL HISTORY: There is no significant past history of recurring sorethroats. ____ in the hospital otherwise and no other ongoing illnesses. PAST SURGICAL HISTORY: Unremarkable except for a knee reconstruction procedurein July 2018 that has gone well and he had no anesthetic problems. MEDICATIONS: He had a dose of vancomycin in [place] and a dose ofclindamycin here with dexamethasone. ALLERGIES: NONE, BUT THERE IS A FAMILIAL HISTORY OF PENICILLIN ALLERGY. REVIEW OF SYSTEMS: Unremarkable. PHYSICAL EXAMINATION:GENERAL: He was drooling, but had no airway problems.VITAL SIGNS: Stable. He has been ____.HEENT: Examination of ears and nose are unremarkable. Mouth, he has tonsillarenlargement with a bulging right tonsil and oral secretions.NECK: Without adenopathy or masses.LUNGS: Clear to auscultation.HEART: Regular rate and rhythm.ABDOMEN: Soft and nontender. There are many aspects of his examination wereunremarkable. ASSESSMENT: PATIENT NAME: KEVIN CHOWDARY 1. Right peritonsillar abscess with no past history of recurring abscess ortonsillitis. Recommendations are for incision and drainage on an urgent oremergent schedule.2. Intravenous clindamycin with postoperative doses and a few more doses ofDecadron.3. This has been discussed with his family and consent was obtained over thephone from his father who was not present at the hospital since his father ishis legal guardian. Dictated By: Dallas Dinero III, MD WT: CON:MEGHA/ELAS./NTSDD: 09/16/2018 16:21:36DT: 09/16/2018 21:03:50Conf#: [id number]/DID#: [id number] Authenticated by Dallas Dinero MD On 09/29/2018 06:10:46 PM at 1811 PATIENT NAME: KEVIN CHOWDARY :03:00F.RI [id number] for patient [id number]:11:06 [facility]
--- NOTE | 2023-11-23 21:52 | ER ---
Nurse's Notes [facility] Name: Kevin Tinoco Age: 23 yrs Sex: Male : 2000 Arrival Date: 11/23/2023 Time: 20:39 Bed DX4 Private MD: Diagnosis: Irreversible pulpitis;Dental caries, unspecified;Dental carious with dental cavity and acute pulpitis tooth # 15 Presentation: 11/22 21:04 Chief complaint: Patient states: Left upper molar cracked yesterday, has been hurting nj1 since. Coronavirus screen: Vaccine status: Patient reports being unvaccinated. Ebola Screen: Patient denies travel to an Ebola-affected area in the 21 days before illness onset. Initial Sepsis Screen: Does the patient meet any 2 criteria? No. Patient's initial sepsis screen is negative. Does the patient have a suspected source of infection? No. Patient's initial sepsis screen is negative. Risk Assessment: Do you want to hurt yourself or someone else? Patient reports no desire to harm self or others. Onset of symptoms was November 22, 2023. 21:04 Method Of Arrival: Ambulatory [facility] 21:04 Acuity: STERLING [address] [facility] Triage Assessment: 21:32 EENT: Reports. mb9 Historical: - Allergies: 21:06 PENICILLINS; nj1 - PMHx: 21:06 ADD/ADHD; nj1 - PSHx: 21:06 R ACL repair; nj1 - Immunization history:: Client reports having NOT received the Covid vaccine. - Social history:: Smoking status: Reported history of juuling and/or vaping. Screenin:32 [facility] ED Fall Risk Assessment (Adult) History of falling in the last 3 months, mb9 including since admission No falls in past 3 months (0 pts) Confusion or Disorientation No (0 pts) Intoxicated or Sedated No (0 pts) Impaired Gait No (0 pts) Mobility Assist Device Used No (0 pt) Altered Elimination No (0 pt) Score/Fall Risk Level 0 - 2 = Low Risk Oriented to surroundings, Maintained a safe environment, Educated pt \T\ family on fall prevention, incl call for assistance when getting out of bed. Abuse screen: Denies threats or abuse. Nutritional screening: No deficits noted. Tuberculosis screening: No symptoms or risk factors identified. Assessment: 21:31 General: Appears in no apparent distress. Behavior is calm, cooperative. Pain: mb9 Complains of pain in left tooth Pain does not radiate. Pain currently is 8 out of 10 on a pain scale. Quality of pain is described as throbbing, Is continuous. Neuro: [place] Agitation-Sedation Scale (RASS): 0 - Alert and Calm Level of Consciousness is awake, alert, obeys commands, Oriented to person, place, time, situation, Appropriate for age. Cardiovascular: Patient's skin is warm and dry. Respiratory: Airway is patent Respiratory effort is even, unlabored, Respiratory pattern is regular, symmetrical. GI: No signs and/or symptoms were reported involving the gastrointestinal system. : No signs and/or symptoms were reported regarding the genitourinary system. EENT: Derm: Skin is pink, warm \T\ dry. Musculoskeletal: Range of motion: intact in all extremities. Vital Signs: 21:04 BP 125 / 83; Pulse 70; Resp 17; Temp 98.5(TE); Pulse Ox 97% ; Weight 83.91 kg; Height 5 nj1 ft. 11 in. ; Pain 3/10; 21:59 BP 118 / 80; Pulse 69; Resp 16; Pulse Ox 100% on R/A; mb9 21:04 Body Mass Index 25.80 (83.91 kg, 180.34 cm) nj1 21:04 Pain Scale: Adult nj1 ED Course: 20:43 Patient arrived in ED. gm2 21:04 Alexandru Crawford MD is Attending Physician. sp4 21:06 Triage completed. nj1 21:06 Arm band placed on right wrist. nj1 21:31 Michelle Lester, SAMIR is Primary Nurse. mb9 21:33 Bed in low position. Call light in reach. Client placed on continuous cardiac and pulse mb9 oximetry monitoring. NIBP monitoring applied. Door closed. Noise minimized. 21:33 Provided Education on: medication administered . mb9 21:33 No provider procedures requiring assistance completed. mb9 21:50 Richy Mancilla DDS is Referral Physician. sp4 21:59 Patient did not have IV access during this emergency room visit. mb9 Administered Medications: 21:31 Drug: Cephalexin PO 500 mg PO once Route: PO; mb9 21:47 Follow up: Response: No adverse reaction mb9 21:31 Drug: Ibuprofen PO 800 mg PO once Route: PO; mb9 21:47 Follow up: Response: No adverse reaction mb9 21:31 Drug: Acetaminophen PO 1000 mg PO once Route: PO; mb9 21:47 Follow up: Response: No adverse reaction mb9 21:31 Drug: Ondansetron PO 4 mg PO once Route: PO; mb9 21:46 Follow up: Response: No adverse reaction mb9 Medication: 21:32 VIS not applicable for this client. mb9 Outcome: 21:52 Discharge ordered by . vaishali 21:59 Discharged to home ambulatory, mb9 21:59 Condition: stable 21:59 Discharge instructions given to patient, Instructed on discharge instructions, follow up and referral plans. Demonstrated understanding of instructions, follow-up care, medications, Prescriptions given X 2, 21:59 Patient left the ED. mb9 Signatures: Michelle Lester RN RN mb9 lAexandru Crawford MD MD sp4 Yeny Padilla RN RN nj1 Lilliana Guy 2
--- NOTE | 2023-11-23 21:52 | EDPHYS ---
Physician Documentation [facility] Name: Kevin Tinoco Age: 23 yrs Sex: Male : 2000 Arrival Date: 11/23/2023 Time: 20:39 Bed DX4 Private MD: ED Physician Alexandru Crawford HPI: 11/22 21:04 This 23 yrs old Male presents to ER via Unassigned with complaints of sp4 Toothache. Historical: - Allergies: 21:06 PENICILLINS; nj1 - PMHx: 21:06 ADD/ADHD; nj1 - PSHx: 21:06 R ACL repair; nj1 - Immunization history:: Client reports having NOT received the Covid vaccine. - Social history:: Smoking status: Reported history of juuling and/or vaping. Vital Signs: 21:04 BP 125 / 83; Pulse 70; Resp 17; Temp 98.5(TE); Pulse Ox 97% ; Weight 83.91 kg; Height 5 nj1 ft. 11 in. ; Pain 3/10; 21:59 BP 118 / 80; Pulse 69; Resp 16; Pulse Ox 100% on R/A; mb9 21:04 Body Mass Index 25.80 (83.91 kg, 180.34 cm) nj1 21:04 Pain Scale: Adult nj1 MDM: 21:23 Patient medically screened. sp4 Administered Medications: 21:31 Drug: Cephalexin PO 500 mg PO once Route: PO; mb9 21:47 Follow up: Response: No adverse reaction mb9 21:31 Drug: Ibuprofen PO 800 mg PO once Route: PO; mb9 21:47 Follow up: Response: No adverse reaction mb9 21:31 Drug: Acetaminophen PO 1000 mg PO once Route: PO; mb9 21:47 Follow up: Response: No adverse reaction mb9 21:31 Drug: Ondansetron PO 4 mg PO once Route: PO; mb9 21:46 Follow up: Response: No adverse reaction mb9 Disposition Summary: 11/23/23 21:52 Discharge Ordered Notes: Please visit Dentist TRUMAN for X ray and dental cavity repair Location: Home sp4 Problem: new sp4 Symptoms: have improved sp4 Condition: Stable sp4 Diagnosis - Irreversible pulpitis sp4 - Dental caries, unspecified sp4 - Dental carious with dental cavity and acute pulpitis tooth # 15 sp4 Followup: sp4 - With: Richy Mancilla DDS - When: 7 - 10 days - Reason: Recheck today's complaints Discharge Instructions: - Discharge Summary Sheet sp4 - Dental Caries, Adult sp4 Forms: - Work release form mb9 - Patient Portal Instructions sp4 Prescriptions: - naproxen 500 mg Oral tablet - take 1 tablet ORAL route every 12 hours PRN pain; 30 tablet; Refills: 0, sp4 Product Selection Permitted - Cephalexin 500 mg Oral Capsule - take 1 capsule ORAL route every 12 hours for 10 days; 20 capsule; Refills: 0, sp4 Product Selection Permitted Signatures: Michelle Lester RN RN mb9 Alexandru Crawford MD MD sp4 Yeny Padilla RN RN nj1
[2023-11-23 22:51] VITALS: BP 118/80; TEMP 98.5; O2SAT 100
== END ==
LOC: ER 20:39
DX: K04.02 Irreversible pulpitis (principal); K02.9 Dental caries, unspecified
CPT/HCPCS: Q0162

== ENCOUNTER 2024-01-11 12:31 | Emergency (ER) | payer SELFPAY ==
--- OUTSIDE RECORDS SUMMARY | 2024-01-11 12:34 | XMS REPORT | Continuity of Care Document ---
Author Name Unknown Address [address] [facility] [address] [place], [place] [id number] [place] [address] [facility] Address [address] [facility] [address] [place] [address] Care Team Providers Care Oysterman Name Role Phone Unavailable Unavailable Unavailable Payers Payer Name Policy Type Policy Number Effective Date Expirati on Date Source Allergies, Adverse Reactions, Alerts Allergy Name Allergy Type Status Severity Reaction(s) Onset Date Inactive Date Treating Clinician Comments Source Penicill ins DA Active U 09-16 00:00: 00 [facility] Notes Date/Time Note Provider Source 2018-09-17 10:49:00 [id number] q+mXvVlDSMElE1k1BSl+sgRBadt3W ZjTFymq+PficvJPHcNUVWz0sRX3YirrS+8715-75-72W79:49 :[id number] [facility] [address] [place], [place] [address] PATIENT NAME: KEVIN CHOWDARY ADMIT DATE: 09/16/18ACCOUNT NO: [id number] ROOM NO: F.[id number] AGE: 18 SEX: M [...] MD WT: PN:MEGHA/ELSA.NTSDD: 09/17/2018 10:49:42DT: 09/17/2018 14:17:24Conf#: [id number]/DID#: [id number] Authenticated by Dallas Dinero MD On 09/29/2018 06:10:52 PM at 1811 PATIENT NAME: KEVIN CHOWDARY [id number]:17:00F.[id number] ble for patient mnkmKXGQGOGYZULPHT0800-98-55P25:11:06 [facility] 2018-09-16 17:01:00 [id number] qqBZ7fWYAUFtyGgPYch11EmaDK0BG 73Px4sfd64+qI5z5FcVYcxpS3cQmaTZ/L7016-89-77Z38:01 :[id number] [facility] [address] [place] [id number] PATIENT NAME: KEVIN CHOWDARY ADMIT DATE: 09/16/18ACCOUNT NO: [id number] ROOM NO: [id number] AGE: 18 SEX: M ADMITTING PHYSICIAN: Radha Villalpando MD ATTENDING PHYSICIAN: Radha Villalpando MD OPERATION DATE: 09/16/2018 PREOPERATIVE DIAGNOSIS: Large right peritonsillar abscess. POSTOPERATIVE DIAGNOSIS: Large right peritonsillar abscess. PROCEDURE PERFORMED: Incision and drainage of right peritonsillar abscess. SURGEON: Dallas Dinero III, MD CONSUMER INSIGHTS SPECIALIST: ANESTHESIA: General anesthesia. COMPLICATIONS: No complications. ESTIMATED BLOOD LOSS: Less than 5 mL. SPECIMENS: Aerobic culture, right peritonsillar abscess. INDICATIONS: The patient is a 18-year-old with a 5- to 8-day history ofprogressively worsening sore throat. He was started on Zithromax, but did notimprove. He was evaluated at the [facility] in [place],but none of the 3 ear, nose, and throat surgeons in [place] were availableto care for this youngster. Therefore, he was transferred to the [facility]. A preoperative CT scan showed a large [...] oral cavity were copiously irrigated with salinesolution. [place] sump tube was passed through the esophagus [...] MD WT: OP:FJULIANN/ELSA.Sandhya/NTSDD: 09/16/2018 17:01:17DT: 09/16/2018 19:31:51Conf#: [id number]/DID#: [id number] Authenticated by Dallas Dinero MD On 09/29/2018 06:10:42 PM at 1811 PATIENT NAME: KEVIN CHOWDARY [id number]:31:00F.[id number] lable for patient [id number]:10:55 [facility] 2018-09-16 16:21:00 [id number] elJdpRj9Cy0pk+znueqjbvWwU1m+2 7DOodWraTAbr9buycjBJd4uZ53QgXotiI0504-68-26D59:21 :[id number] [place] [address] PATIENT NAME: KEVIN CHOWDARY ADMIT DATE: 09/16/18ACCOUNT NO: [id number] ROOM NO: F.[id number] AGE: 18 SEX: M ADMITTING PHYSICIAN: Radha Villalpando MD ATTENDING PHYSICIAN: Radha Villalpando MD CONSULTATION DATE: 09/16/2018 CONSULTING PHYSICIAN: Dallas Dinero III, MD PEDIATRIC OTOLARYNGOLOGY CONSULTATION CHIEF COMPLAINT: Sore throat and difficulty swallowing. HISTORY OF PRESENT ILLNESS: The patient is a 18-year-old with a 5-day historyof gradually worsening sore throat and difficulty swallowing. He was seen by aphysician in the [facility] and started on azithromycin or Zithromax acouple of days ago with no improvement. When he was not improving, he was [facility]at [facility]. He was assessedthere and found to have a right peritonsillar abscess by CT scan. Local ear,nose, and throat surgeons of which there are 3 in the [facility] werecalled, but none of them appeared to be available for this procedure. Therefore, he was transferred to the [facility]. PAST MEDICAL HISTORY: There is no significant past history of recurring sorethroats. ____ in the hospital otherwise and no other ongoing illnesses. PAST SURGICAL HISTORY: Unremarkable except for a knee reconstruction procedurein July 2018 that has gone well and he had no anesthetic problems. MEDICATIONS: He had a dose of vancomycin in [place] and a dose ofclindamycin here with dexamethasone. [...] Dictated By: Dallas Dinero III, MD WT: CON:MEGHA/ELSA./NTSDD: 09/16/2018 16:21:36DT: 09/16/2018 21:03:50Conf#: [id number]/DID#: [id number] Authenticated by Dallas Dinero MD On 09/29/2018 06:10:46 PM at 1811 PATIENT NAME: KEVIN CHOWDARY :03:00F.KS [id number] for patient [id number]:11:06 [facility]
--- NOTE | 2024-01-11 13:37 | RAD REPORT ---
EXAM DESCRIPTION: RAD - Knee Right 3 View - 01/11/2024 1:32 pm CLINICAL HISTORY: PAIN COMPARISON: Knee Right 3 View dated 11/04/2020 FINDINGS: Evidence of prior ACL repair noted. Arthritic changes are present, njit-vv-fppdtiqu partic ularly in the medial joint compartment. No acute fracture or evidence of joint effusion. Mild soft ti ssue swelling is seen inferior to the inferior patellar pole.
--- NOTE | 2024-01-11 14:13 | ER ---
Nurse's Notes [facility] Name: Kevin Tinoco Age: 23 yrs Sex: Male : 2000 Arrival Date: 01/11/2024 Time: 12:31 Bed 11 Private MD: Diagnosis: Sprain of unspecified site of right knee, initial encounter Presentation: 01/10 12:36 Chief complaint: Patient states: right knee pain. Coronavirus screen: At this time, the as6 client does not indicate any symptoms associated with coronavirus-19. Ebola Screen: No symptoms or risks identified at this time. Initial Sepsis Screen: Does the patient meet any 2 criteria? No. Patient's initial sepsis screen is negative. Does the patient have a suspected source of infection? No. Patient's initial sepsis screen is negative. Risk Assessment: Do you want to hurt yourself or someone else? Patient reports no desire to harm self or others. Onset of symptoms was January 08, 2024. 12:36 Method Of Arrival: Ambulatory as6 12:36 Acuity: STERLING 4 as6 Historical: - Allergies: 12:38 PENICILLINS; as6 - PMHx: 12:38 ADD/ADHD; as6 - PSHx: 12:38 R ACL repair; as6 - Immunization history:: Adult Immunizations up to date. - Infectious Disease History:: Denies. - Social history:: Smoking status: Reported history of juuling and/or vaping. - Family history:: not pertinent. - Hospitalizations: : No recent hospitalization is reported. Screenin:43 [facility] ED Fall Risk Assessment (Adult) History of falling in the last 3 months, cp4 including since admission No falls in past 3 months (0 pts) Confusion or Disorientation No (0 pts) Intoxicated or Sedated No (0 pts) Impaired Gait No (0 pts) Mobility Assist Device Used No (0 pt) Altered Elimination No (0 pt) Score/Fall Risk Level 0 - 2 = Low Risk Oriented to surroundings, Maintained a safe environment, Assessed \T\ reinforced patient's understanding of fall precautions, Hourly rounding (assess needs \T\ fall precautionary measures) done. Abuse screen: Denies threats or abuse. Nutritional screening: No deficits noted. Tuberculosis screening: No symptoms or risk factors identified. Assessment: 12:43 General: Appears uncomfortable, Behavior is calm, cooperative, appropriate for age. cp4 Pain: Complains of pain in right knee Pain currently is 4 out of 10 on a pain scale. Musculoskeletal: Reports pain in right knee since 2 days ago. Vital Signs: 12:36 BP 125 / 85; Pulse 64; Resp 15 S; Temp 98(TE); Pulse Ox 100% on R/A; Weight 83.91 kg; as6 Height 5 ft. 11 in. (R); Pain 4/10; 14:20 BP 121 / 86; Pulse 57; Resp 18; Pulse Ox 100% ; cp4 12:36 Body Mass Index 25.80 (83.91 kg, 180.34 cm) as6 12:36 Pain Scale: Adult as6 ED Course: 12:32 Patient arrived in ED. rg4 12:35 Arm band placed on left wrist. as6 12:37 Yaya Jacob MD is Attending Physician. rn 12:37 Triage completed. as6 12:38 Kia Alfonso is Primary Nurse. cp4 12:43 Bed in low position. Call light in reach. Side rails up X 1. Provided Education on: cp4 knee pain. 12:43 No provider procedures requiring assistance completed. Patient did not have IV access cp4 during this emergency room visit. 13:34 XRAY Knee RIGHT 3 view In Process Unspecified. EDMS Administered Medications: No medications were administered Medication: 12:43 VIS not applicable for this client. cp4 Outcome: 14:12 Discharge ordered by . rn 14:21 Discharged to home ambulatory, cp4 14:21 Condition: stable 14:21 Discharge instructions given to patient, Instructed on discharge instructions, follow up and referral plans. Demonstrated understanding of instructions, follow-up care, 14:21 Patient left the ED. cp4 Signatures: Dispatcher [employer] EDMS Yaya Jacob MD MD rn Garcia, Rubi rg4 Stephon Moctezuma RN RN asKia Conrad cp4
--- NOTE | 2024-01-11 14:13 | EDPHYS ---
Physician Documentation [facility] Name: Kevin Tinoco Age: 23 yrs Sex: Male : 2000 Arrival Date: 01/11/2024 Time: 12:31 Bed 11 Private MD: ED Physician Yaya Jacob HPI: 01/10 14:08 This 23 yrs old Male presents to ER via Ambulatory with complaints of knee pain. rn 14:09 The patient presents with pain, that is acute. The complaints affect the right knee. rn 14:10 Onset: The symptoms/episode began/occurred 3 day(s) ago. Modifying factors: The rn symptoms are alleviated by nothing. the symptoms are aggravated by movement, weight bearing, bending knee. Severity of symptoms: At their worst the symptoms were moderate, in the emergency department the symptoms have improved. The patient has experienced similar episodes in the past. Patient reports climbing down stairs, felt right knee buckle and had immediate pain. Hurts to ambulate and bend knee. No direct trauma. Has had ACL repair in the past. States pain is better but sent over for medical clearance. Historical: - Allergies: 12:38 PENICILLINS; as6 - PMHx: 12:38 ADD/ADHD; as6 - PSHx: 12:38 R ACL repair; as6 - Immunization history:: Adult Immunizations up to date. - Infectious Disease History:: Denies. - Social history:: Smoking status: Reported history of juuling and/or vaping. - Family history:: not pertinent. - Hospitalizations: : No recent hospitalization is reported. ROS: 14:10 Constitutional: Negative for fever, chills, and weight loss, MS/Extremity: Positive for rn right knee pain Neuro: Negative for weakness or numbness Exam: 14:10 Constitutional: This is a well developed, well nourished patient who is awake, alert, rn and in no acute distress. MS/ Extremity: Pulses equal, no cyanosis. Neurovascular intact. Full, normal range of motion with grinding present. Equal circumference. Vital Signs: 12:36 BP 125 / 85; Pulse 64; Resp 15 S; Temp 98(TE); Pulse Ox 100% on R/A; Weight 83.91 kg; as6 Height 5 ft. 11 in. (R); Pain 4/10; 14:20 BP 121 / 86; Pulse 57; Resp 18; Pulse Ox 100% ; cp4 12:36 Body Mass Index 25.80 (83.91 kg, 180.34 cm) as6 12:36 Pain Scale: Adult as6 MDM: 12:37 Patient medically screened. rn 14:10 Differential diagnosis: Arthritis, knee effusion, strain, sprain. Data reviewed: vital rn signs, nurses notes, radiologic studies, plain films, and as a result, I will discharge patient. Counseling: I had a detailed discussion with the patient and/or guardian regarding the historical points, exam findings, and any diagnostic results supporting the discharge/admit diagnosis, radiology results, the need for outpatient follow up, to return to the emergency department if symptoms worsen or persist or if there are any questions or concerns that arise at home. Special discussion: I discussed with the patient/guardian in detail that at this point there is no indication for admission to the hospital. It is understood, however, that if the symptoms persist or worsen the patient needs to return immediately for re-evaluation. 01/10 12:51 Order name: XRAY Knee RIGHT 3 view; Complete Time: 13:56 rn Administered Medications: No medications were administered Disposition Summary: 01/11/24 14:12 Discharge Ordered Notes: Location: Home rn Problem: new rn Symptoms: have improved rn Condition: Stable rn Diagnosis - Sprain of unspecified site of right knee, initial encounter rn Followup: rn - With: Private Physician - When: As needed - Reason: Recheck today's complaints, Re-evaluation by your physician Discharge Instructions: - Discharge Summary Sheet rn - Knee Sprain, Adult rn Forms: - Work release form rn - Medication Reconciliation Form rn - Antibiotic news department intern - Prescription Opioid Use rn - Patient Portal Instructions rn - Leadership Thank You Letter rn Signatures: Dispatcher [employer] Yaya Ohara MD MD rn Slawson, Ashby, RN RN as6 Corrections: (The following items were deleted from the chart) 14:13 14:10 Special discussion: I discussed with the patient/guardian in detail that at this rn point there is no indication for admission to the hospital. It is understood, however, that if the symptoms persist or worsen the patient needs to return immediately for re-evaluation. Based on the history and exam findings, there is no indication for further emergent testing or inpatient evaluation. I discussed with the patient/guardian the need to see the orthopedic surgeon for further evaluation of the symptoms. rn
[2024-01-11 14:27] VITALS: BP 121/86; TEMP 98; O2SAT 100
== END 2024-01-11 14:21 | disposition home or self-care (01) ==
LOC: ER 12:31
DX: S83.91XA Sprain of unspecified site of right knee, initial encounter (principal)
CPT/HCPCS: 99282

== ENCOUNTER 2024-04-16 17:15 | Emergency (ER) | payer SELFPAY ==
--- OUTSIDE RECORDS SUMMARY | 2024-04-16 17:17 | XMS REPORT | Continuity of Care Document ---
Author Name Unknown Address [address] [facility] [address] [place] [address] [facility] Address [address] [facility] [address] [place] [address] Care Team Providers Care Bag Mender Name Role Phone Unavailable Unavailable Unavailable Payers Payer Name Policy Type Policy Number Effective Date Expirati on Date Source Allergies, Adverse Reactions, Alerts Allergy Name Allergy Type Status Severity Reaction(s) Onset Date Inactive Date Treating Clinician Comments Source Penicill ins DA Active U 09-16 00:00: 00 [facility] Notes Date/Time Note Provider Source 2018-09-17 10:49:00 [id number] [facility] [address], [place] [address] PATIENT NAME: KEVIN CHOWDARY ADMIT DATE: 09/16/18 ACCOUNT NO: [id number] ROOM NO: [id number] AGE: 18 SEX: M ADMITTING PHYSICIAN: Radha Villalpando MD ATTENDING PHYSICIAN: Radha Villalpando MD DATE: 09/17/2018 PEDIATRIC OTOLARYNGOLOGY PROGRESS NOTE POSTOPERATIVE DAY #1 BRIEF HISTORY: Kevin has done well overnight after incision and drainage of his very large nearly obstructing right peritonsillar abscess yesterday evening. He feels vastly better, is swallowing well now and has really needed very little in the way of pain medicines. PHYSICAL EXAMINATION: There is still some fullness on the right, but he has a vastly better airway and now he is swallowing all secretions and he is healing well. His vital signs are stable and he is afebrile. IMPRESSION: Excellent postoperative course, status post incision and drainage of a very large right peritonsillar abscess. PLAN: He can be discharged today after his next dose of dexamethasone. He should go home on oral clindamycin to complete a 10-day course. I have recommended follow up in my office in a month's time and his parents have our contact phone number. He can resume normal activities and normal diet as tolerated. Dictated By: Dallas Dinero III, MD WT: PN:MEGHA/ELSA. Conf#: [id number]/DID#: [id number] Authenticated by Dallas Dinero MD On 09/29/2018 06:10:52 PM at 1811 PATIENT NAME: KEVIN CHOWDARY [facility] [place] 2018-09-16 17:01:00 [id number] [place] [address] PATIENT NAME: KEVIN CHOWDARY ADMIT DATE: 09/16/18 ACCOUNT NO: [id number] ROOM NO: [id number] AGE: 18 SEX: M ADMITTING PHYSICIAN: Radha Villalpando MD ATTENDING PHYSICIAN: Radha Villalpando MD OPERATION DATE: 09/16/2018 PREOPERATIVE DIAGNOSIS: Large right peritonsillar abscess. POSTOPERATIVE DIAGNOSIS: Large right peritonsillar abscess. PROCEDURE PERFORMED: Incision and drainage of right peritonsillar abscess. SURGEON: Dallas Dinero III, MD ASSET COORDINATOR: ANESTHESIA: General anesthesia. COMPLICATIONS: No complications. ESTIMATED BLOOD LOSS: Less than 5 mL. SPECIMENS: Aerobic culture, right peritonsillar abscess. INDICATIONS: The patient is a 18-year-old with a 5- to 8-day history of progressively worsening sore throat. He was started on Zithromax, but did not improve. He was evaluated at the [facility] in [place], but none of the 3 ear, nose, and throat surgeons in [place] were available to care for this youngster. Therefore, he was transferred to the [facility]. A preoperative CT scan showed a large right peritonsillar abscess. He has not had a history of recurring tonsillitis or tonsil problems in the past. FINDINGS: Huge right peritonsillar abscess that was already slightly draining with a necrotic right tonsil. His opposite tonsil was rather normal. He did have some impending airway issues with the size of this abscess. Large right peritonsillar abscess with nearly compromised oropharynx. PROCEDURE IN DETAIL: After satisfactory induction of general anesthesia and endotracheal intubation, he was draped in the usual fashion. The McIvor mouth gag was inserted and suspended. A 1% lidocaine with 1:100,000 epinephrine was infiltrated in the right superior anterior peritonsillar area. Using a 15 blade, a 1-cm incision was made in the right anterior superior tonsillar pillar area. Using a gently curved packed clamp, this was probed and immediately a copious amount of mucopurulent secretions were obtained. These were cultured. The abscess cavity and oral cavity were copiously irrigated with saline solution. [place] sump tube was passed through the esophagus into the stomach to PATIENT NAME: KEVIN CHOWDARY drain stomach contents. Good hemostasis was present. He was awakened from general anesthesia and extubated in the operating room. He tolerated the procedure well. It should be noted that before going to the operating room, he received intravenous antibiotics and dexamethasone. Dictated By: Dallas Dinero III, MD WT: OP:MEGHA/ Conf#: [id number]/DID#: [id number] Authenticated by Dallas Dinero MD On 09/29/2018 06:10:42 PM at 1811 PATIENT NAME: KEVIN CHOWDARY [facility] [place] 2018-09-16 16:21:00 [id number] [facility] [address], [place] [address] PATIENT NAME: KEVIN CHOWDARY ADMIT DATE: 09/16/18 ACCOUNT NO: [id number] ROOM NO: [facility] AGE: 18 SEX: M ADMITTING PHYSICIAN: Radha Villalpando MD ATTENDING PHYSICIAN: Radha Villalpando MD CONSULTATION DATE: 09/16/2018 CONSULTING PHYSICIAN: Dallas Dinero III, MD PEDIATRIC OTOLARYNGOLOGY CONSULTATION CHIEF COMPLAINT: Sore throat and difficulty swallowing. HISTORY OF PRESENT ILLNESS: The patient is a 18-year-old with a 5-day history of gradually worsening sore throat and difficulty swallowing. He was seen by a physician in the [facility] and started on azithromycin or Zithromax a couple of days ago with no improvement. When he was not improving, he was seen at the hospital facility in [place], [facility]. He was assessed there and found to have a right peritonsillar abscess by CT scan. Local ear, nose, and throat surgeons of which there are 3 in the [facility] were called, but none of them appeared to be available for this procedure. Therefore, he was transferred to the [facility]. PAST MEDICAL HISTORY: There is no significant past history of recurring sore throats. ____ in the hospital otherwise and no other ongoing illnesses. PAST SURGICAL HISTORY: Unremarkable except for a knee reconstruction procedure in July 2018 that has gone well and he had no anesthetic problems. MEDICATIONS: He had a dose of vancomycin in [place] and a dose of clindamycin here with dexamethasone. ALLERGIES: NONE, BUT THERE IS A FAMILIAL HISTORY OF PENICILLIN ALLERGY. REVIEW OF SYSTEMS: Unremarkable. PHYSICAL EXAMINATION: GENERAL: He was drooling, but had no airway problems. VITAL SIGNS: Stable. He has been ____. HEENT: Examination of ears and nose are unremarkable. Mouth, he has tonsillar enlargement with a bulging right tonsil and oral secretions. NECK: Without adenopathy or masses. LUNGS: Clear to auscultation. HEART: Regular rate and rhythm. ABDOMEN: Soft and nontender. There are many aspects of his examination were unremarkable. ASSESSMENT: PATIENT NAME: KEVIN CHOWDARY 1. Right peritonsillar abscess with no past history of recurring abscess or tonsillitis. Recommendations are for incision and drainage on an urgent or emergent schedule. 2. Intravenous clindamycin with postoperative doses and a few more doses of Decadron. 3. This has been discussed with his family and consent was obtained over the phone from his father who was not present at the hospital since his father is his legal guardian. Dictated By: Dallas Dinero III, MD WT: CON:MEGHA/ELSA. Conf#: [id number]/DID#: [id number] Authenticated by Dallas Dinero MD On 09/29/2018 06:10:46 PM at 1811 PATIENT NAME: KEVIN CHOWDARY [facility] [place]
[2024-04-16 18:03] LABS: Specific Gravity 1.021 (1.005-1.030); Sqamous Epithelial <5 /HPF (None Seen); Urine Bacteria <20 /HPF (<20); Urine Bilirubin NEGATIVE (Negative); Urine Blood Negative (Negative); Urine Clarity Turbid (Clear); Urine Color Light-Yellow (Yellow); Urine Culture Reflex Order NOT NEEDED; Urine Glucose NEGATIVE (Negative); Urine Ketones NEGATIVE (Negative); Urine Microscopic Reflex YN ORDER UMIC; Urine Mucus Slight /HPF (None Seen); Urine Nitrite NEGATIVE (Negative); Urine Protein TRACE (Negative); Urine Urobilinogen Normal (Normal); Urine WBC <5 /HPF (<5); Urine pH 7.5 (5.0-7.0)
[2024-04-16 18:11] LABS: SARS-CoV-2 Antigen CONTROL BLUE LINE VIS/BG OK; SARS-CoV-2 Antigen Rapid Res Negative (Negative)
[2024-04-16] MEDS ORDERED: ONDANSETRON 4 MG/2 ML VIAL ONE (18:18)
[2024-04-16] MEDS ORDERED: NA CHLORIDE 0.9% 1,000 ML ONE (18:19)
[2024-04-16] MEDS ORDERED: LOPERAMIDE HCL 2 MG CAPSULE ONE (18:19)
[2024-04-16 18:33] LABS: Absolute Lymphocytes (CBC) 1.5 K/uL (0.7-4.9); Absolute Monocytes 0.6 K/uL (0.1-1.3); Absolute Neutrophil 3.3 K/uL (1.8-8.0); Basophils % 0.4 % (0-1.3); Eosinophils % 0.5 % (0-4.4); Hematocrit 41.7 % (39.6-49.0); MCH 28.3 pg (27.0-35.0); MCHC 33.6 g/dL (32.0-36.0); MCV 84.2 fL (80-100); MPV 8.2 fL (7.6-11.3); Monocytes % 11.3 % (3.3-12.3); Neutrophils % 60.8 % (41.7-73.7); Nucleated Red Blood Cells % 0.1 % (0-0); Platelets 242 thou/uL (152-406); RBC Red Blood Cell Count 4.95 M/uL (4.33-5.43); Red Cell Distribution Width 13.7 % (12.1-15.2)
[2024-04-16 18:51] LABS: Albumin 3.8 g/dL (3.4-5.0); Albumin/Globulin Ratio 1.1 (1.1-1.8); Anion Gap 2.9 mEq/L (5.0-15.0); Bilirubin Total 0.5 mg/dL (0.2-1.0); Globulin 3.6 g/dL (2.3-3.5); Potassium 3.9 mEq/L (3.5-5.1); Protein, Total 7.4 g/dL (6.4-8.2)
--- NOTE | 2024-04-16 19:47 | RAD REPORT ---
EXAM DESCRIPTION: CT - Abdomen Pelvis W Contrast - 04/16/2024 7:27 pm CLINICAL HISTORY: ABD PAIN COMPARISON: No comparisons TECHNIQUE: Thin cut axial CT imaging of the abdomen and pelvis was performed following intravenous a dministration of 100 mL Isovue 300. Multiplanar reformats were generated and reviewed. All CT scans are performed using dose optimization technique as appropriate and may include automated exposure control or mA/KV adjustment according to patient size. FINDINGS: No suspicious findings in the lung bases. The liver, spleen, and pancreas show no suspicious findings. Gallbladder and biliary tree are also wi thout suspicious finding. Symmetric renal function is seen with no hydronephrosis or suspicious renal mass. No dilated bowel loops or bowel wall thickening. No free air, free fluid or inflammatory stranding. N o hernia, mass or bulky lymphadenopathy. The urinary bladder is without significant finding. No suspicious bony findings. IMPRESSION: No acute intra-abdominal process.
--- NOTE | 2024-04-16 19:50 | EDPHYS ---
Physician Documentation [facility] Name: Kevin Tinoco Age: 23 yrs Sex: Male : 2000 Arrival Date: 04/16/2024 Time: 17:15 Bed 18 Private MD: ED Physician Bubba Mckeon HPI: 04/16 17:40 This 23 yrs old Male presents to ER via Ambulatory with complaints of sb4 Nausea/Vomiting/Diarrhea. 17:40 The patient presents to the emergency department with nausea, vomiting, diarrhea. sb4 Onset: The symptoms/episode began/occurred 3 day(s) ago. Possible causes: unknown. Associated signs and symptoms: The patient has no apparent associated signs or symptoms. The patient has not experienced similar symptoms in the past. The patient has not recently seen a physician. Historical: - Allergies: 17:38 PENICILLINS; ll1 - PMHx: 17:38 ADD/ADHD; ll1 - PSHx: 17:38 R ACL repair; ll1 - Immunization history:: Adult Immunizations up to date. - Infectious Disease History:: Denies. - Social history:: Smoking status: Reported history of juuling and/or vaping. ROS: 17:40 Constitutional: Negative for fever, chills, and weight loss, sb4 17:40 Abdomen/GI: Positive for nausea, vomiting, and diarrhea, 17:40 All other systems are negative, Exam: 17:40 Constitutional: This is a well developed, well nourished patient who is awake, alert, sb4 and in no acute distress. Head/Face: Normocephalic, atraumatic. Eyes: Extra-ocular motions intact. Periorbital areas with no swelling, redness, or edema. ENT: Mucous membranes moist. Cardiovascular: Regular rate and rhythm with a normal S1 and S2. Respiratory: Lungs have equal breath sounds bilaterally, clear to auscultation and percussion. No rales, rhonchi or wheezes noted. No increased work of breathing, no retractions or nasal flaring. Abdomen/GI: Soft, non-tender, no distension. Skin: Warm, dry with normal turgor. Normal color with no rashes, no lesions, and no evidence of cellulitis. MS/ Extremity: Pulses equal, no cyanosis. Neurovascular intact. Full, normal range of motion. Vital Signs: 17:38 BP 138 / 82; Pulse 84; Resp 17; Temp 98.8; Pulse Ox 99% on R/A; Weight 90.72 kg; Height ll1 5 ft. 9 in. ; Pain 0/10; 18:11 BP 124 / 78; Pulse 67; Resp 15; Pulse Ox 99% on R/A; tl4 20:03 BP 112 / 73; Pulse 79; Resp 18; Temp 98.9; Pulse Ox 98% on R/A; Pain 0/10; tm6 17:38 Body Mass Index 29.53 (90.72 kg, 175.26 cm) ll1 17:38 Pain Scale: Adult ll1 20:03 Pain Scale: Adult tm6 MDM: 17:22 Patient medically screened. sb4 19:50 Data reviewed: vital signs, nurses notes, lab test result(s), radiologic studies, and sb4 as a result, I will discharge patient. Counseling: I had a detailed discussion with the patient and/or guardian regarding the historical points, exam findings, and any diagnostic results supporting the discharge/admit diagnosis, lab results, radiology results, to return to the emergency department if symptoms worsen or persist or if there are any questions or concerns that arise at home. 04/16 17:34 Order name: CBC with Diff; Complete Time: 18:52 sb4 04/16 17:34 Order name: CMP; Complete Time: 18:52 sb4 04/16 17:34 Order name: Lipase; Complete Time: 18:52 sb4 04/16 17:34 Order name: Urinalysis w/ reflexes; Complete Time: 18:07 sb4 04/16 17:34 Order name: SARS RAPID; Complete Time: 18:17 sb4 04/16 17:34 Order name: CT Abd/Pelvis - IV Contrast Only; Complete Time: 19:48 sb4 04/16 17:34 Order name: IV Saline Lock; Complete Time: 18:10 sb4 04/16 17:34 Order name: Labs collected and sent; Complete Time: 18:10 sb4 Administered Medications: 18:23 Drug: NS 0.9% IV 1000 ml IV at 1 bolus Per protocol; 1000 mL bolus Route: IV; Rate: 1 tl4 bolus; Site: right antecubital; Delivery: Primary tubing; 20:04 Follow up: IV Status: Completed infusion; IV Intake: 1000ml tm6 18:23 Drug: Ondansetron IVP 4 mg IVP once; over 2 minutes Route: IVP; Infused Over: 2 mins; tl4 Site: right antecubital; 18:23 Drug: Loperamide PO 4 mg PO once Route: PO; tl4 Disposition Summary: 04/16/24 19:50 Discharge Ordered Notes: Location: Home sb4 Problem: new sb4 Symptoms: have improved sb4 Condition: Stable sb4 Diagnosis - Viral gastroenteritis sb4 Followup: sb4 - With: Private Physician - When: As needed - Reason: Recheck today's complaints, Re-evaluation by your physician Discharge Instructions: - Discharge Summary Sheet sb4 - Viral Gastroenteritis, Adult, [id number] sb4 Forms: - Patient Portal Instructions sb4 - Leadership Thank You Letter sb4 - Work release form tm6 Prescriptions: - Imodium A-D 2 mg Oral tablet - take 1 tablet ORAL route every 1 to 4 hours as needed for loose stool; sb4 administer after each loose stool until symptoms controlled; do not exceed 8 mg per 24 hrs; 12 tablet; Refills: 0, Product Selection Permitted - Zofran 4 mg Oral Tablet - take 1 tablet ORAL route every 12 hours As needed; 20 tablet; Refills: 0, sb4 Product Selection Permitted Signatures: Dispatcher [employer] EDAyden Cooper, RN RN ll1 Alana Galeana PA-C PA-C sb4 Rickey Montenegro RN RN tl4 Kavitha Ortiz RN tm6 Corrections: (The following items were deleted from the chart) 17:35 17:35 CBC+H.LAB.BRZ ordered. EDMS EDMS 17:35 17:35 COMPREHENSIVE METABOLIC PANEL+C.LAB.BRZ ordered. EDMS EDMS 17:35 17:35 LIPASE+C.LAB.BRZ ordered. EDMS EDMS 17:35 17:35 Urinalysis+U.LAB.BRZ ordered. EDMS EDMS 17:35 17:35 SARS-COV-2 Antigen Rapid+I.LAB.BRZ ordered. EDMS EDMS 17:35 17:35 Abdomen Pelvis W Con+CT.RAD.BRZ ordered. EDMS EDMS
--- NOTE | 2024-04-16 19:50 | ER ---
Nurse's Notes [facility] Name: Kevin Tinoco Age: 23 yrs Sex: Male : 2000 Arrival Date: 04/16/2024 Time: 17:15 Bed 18 Private MD: Diagnosis: Viral gastroenteritis Presentation: 04/16 17:38 Chief complaint: Patient states: N/V/D for 4 days. No known fever. Coronavirus screen: ll1 Client denies travel out of the [place] in the last 14 days. diarrhea, fatigue, nausea, vomiting. Client presents with at least one sign or symptom that may indicate coronavirus-19. Standard/surgical mask placed on the client. Ebola Screen: Patient denies travel to an Ebola-affected area in the 21 days before illness onset. Initial Sepsis Screen: Does the patient meet any 2 criteria? No. Patient's initial sepsis screen is negative. Does the patient have a suspected source of infection? No. Patient's initial sepsis screen is negative. Risk Assessment: Do you want to hurt yourself or someone else? Patient reports no desire to harm self or others. Onset of symptoms was April 13, 2024. 17:38 Method Of Arrival: Ambulatory ll1 17:38 Acuity: STERLING 3 ll1 Triage Assessment: 17:39 General: Appears uncomfortable, Behavior is calm, cooperative, appropriate for age. ll1 Pain: Denies pain. GI: Reports cramping, diarrhea, nausea, vomiting. Historical: - Allergies: 17:38 PENICILLINS; ll1 - PMHx: 17:38 ADD/ADHD; ll1 - PSHx: 17:38 R ACL repair; ll1 - Immunization history:: Adult Immunizations up to date. - Infectious Disease History:: Denies. - Social history:: Smoking status: Reported history of juuling and/or vaping. Screenin:12 [facility] ED Fall Risk Assessment (Adult) History of falling in the last 3 months, tl4 including since admission No falls in past 3 months (0 pts) Confusion or Disorientation No (0 pts) Intoxicated or Sedated No (0 pts) Impaired Gait No (0 pts) Mobility Assist Device Used No (0 pt) Altered Elimination No (0 pt) Score/Fall Risk Level 0 - 2 = Low Risk Oriented to surroundings, Maintained a safe environment, Educated pt \T\ family on fall prevention, incl call for assistance when getting out of bed, Assessed \T\ reinforced patient's understanding of fall precautions. Abuse screen: Denies threats or abuse. Denies injuries from another. Nutritional screening: No deficits noted. Tuberculosis screening: No symptoms or risk factors identified. Assessment: 18:10 General: Appears in no apparent distress. Behavior is calm, cooperative. Pain: tl4 Complains of pain in abdomen and neck. Neuro: Level of Consciousness is awake, alert, obeys commands, Oriented to person, place, time, situation, Moves all extremities. Full function Gait is steady, Speech is normal, Facial symmetry appears normal. Cardiovascular: Capillary refill < 3 seconds Patient's skin is warm and dry. Respiratory: Airway is patent Respiratory effort is even, unlabored, Respiratory pattern is regular, symmetrical, Breath sounds are clear bilaterally. GI: Abdomen is non-distended, Reports lower abdominal pain, diarrhea, nausea, vomiting. : No signs and/or symptoms were reported regarding the genitourinary system. EENT: No signs and/or symptoms were reported regarding the EENT system. Derm: No signs and/or symptoms reported regarding the dermatologic system. Musculoskeletal: Reports pain in neck. 20:03 Reassessment: Patient appears in no apparent distress at this time. Patient and/or tm6 family updated on plan of care and expected duration. Pain level reassessed. Patient is alert, oriented x 3, equal unlabored respirations, skin warm/dry/pink. Vital Signs: 17:38 BP 138 / 82; Pulse 84; Resp 17; Temp 98.8; Pulse Ox 99% on R/A; Weight 90.72 kg; Height ll1 5 ft. 9 in. ; Pain 0/10; 18:11 BP 124 / 78; Pulse 67; Resp 15; Pulse Ox 99% on R/A; tl4 20:03 BP 112 / 73; Pulse 79; Resp 18; Temp 98.9; Pulse Ox 98% on R/A; Pain 0/10; tm6 17:38 Body Mass Index 29.53 (90.72 kg, 175.26 cm) ll1 17:38 Pain Scale: Adult ll1 20:03 Pain Scale: Adult tm6 ED Course: 17:18 Patient arrived in ED. gm2 17:19 Alana Galeana PA-C is PHCP. sb4 17:19 Bubba Mckeon MD is Attending Physician. sb4 17:27 Bubba Mckeon MD is Attending Physician. sb4 17:27 [facility] Galeana [facility]-C [facility]. sb4 17:27 Bubba Mckeon MD is Attending Physician. sb4 17:29 Arm band placed on Patient placed in an exam room, on a stretcher. ll1 17:39 Triage completed. ll1 17:51 Urine collected: clean catch specimen, clear, COVID swab sent to lab. me1 17:51 SARS RAPID Sent. me1 17:51 Urinalysis w/ reflexes Sent. me1 18:10 CBC with Diff Sent. tl4 18:10 Lipase Sent. tl4 18:10 CMP Sent. tl4 18:10 SARS RAPID Sent. tl4 18:13 Patient has correct armband on for positive identification. Bed in low position. Call tl4 light in reach. Side rails up X 1. Provided Education on: ed process, call adorno. Client placed on continuous cardiac and pulse oximetry monitoring. NIBP monitoring applied. Door closed. Noise minimized. Moved to private room. 18:13 No provider procedures requiring assistance completed. Inserted saline lock: 22 gauge tl4 in right antecubital area, using aseptic technique. Blood collected. Flushed with 10 mL NS. 19:28 CT Abd/Pelvis - IV Contrast Only In Process Unspecified. EDMS 19:49 Bubba Mckeon MD is Referral Physician. sb4 19:57 Kavitha Ortiz, RN is Primary Nurse. tm6 20:04 IV discontinued, intact, bleeding controlled, No redness/swelling at site. Pressure tm6 dressing applied. Administered Medications: 18:23 Drug: NS 0.9% IV 1000 ml IV at 1 bolus Per protocol; 1000 mL bolus Route: IV; Rate: 1 tl4 bolus; Site: right antecubital; Delivery: Primary tubing; 20:04 Follow up: IV Status: Completed infusion; IV Intake: 1000ml tm6 18:23 Drug: Ondansetron IVP 4 mg IVP once; over 2 minutes Route: IVP; Infused Over: 2 mins; tl4 Site: right antecubital; 18:23 Drug: Loperamide PO 4 mg PO once Route: PO; tl4 Medication: 18:12 VIS not applicable for this client. tl4 Intake: 20:04 IV: 1000ml; Total: 1000ml. tm6 Outcome: 19:50 Discharge ordered by . sb4 20:03 Discharged to home ambulatory, tm6 20:03 Condition: stable 20:03 Discharge instructions given to patient, Instructed on discharge instructions, follow up and referral plans. medication usage, Demonstrated understanding of instructions, follow-up care, medications, Prescriptions given X 2, 20:04 Patient left the ED. tm6 Signatures: Dispatcher [employer] EDAyden Cooper, RN RN ll1 Alana Galeana, PA-C PA-C sb4 Kelin Canales RN RN me1 Lilliana Guy 2 Kavitha Ortiz RN RN tm6 Rickey Montenegro RN RN tl4
[2024-04-17 01:02] VITALS: BP 112/73; TEMP 98.9; O2SAT 98
== END 2024-04-16 20:04 | disposition home or self-care (01) ==
LOC: ER 17:15
DX: A08.4 Viral intestinal infection, unspecified (principal); Z11.52 Encounter for screening for COVID-19
CPT/HCPCS: 36415; 74177; 80053; 81001; 83690; 85025; 87811; 96361; 96374; 99284; J2405; J7030; Q9967

== ENCOUNTER 2024-05-16 15:13 | Emergency (ER) | payer SELFPAY ==
--- OUTSIDE RECORDS SUMMARY | 2024-05-16 15:17 | XMS REPORT | Continuity of Care Document ---
Author Name Unknown Address [address] [facility]. [address] [place] [address] [facility] Address [address] [facility] [address] [place] [address] Care Team Providers Care Dev Manager Name Role Phone Unavailable Unavailable Unavailable Payers Payer Name Policy Type Policy Number Effective Date Expirati on Date Source Allergies, Adverse Reactions, Alerts Allergy Name Allergy Type Status Severity Reaction(s) Onset Date Inactive Date Treating Clinician Comments Source Penicill ins DA Active U 09-16 00:00: 00 [facility] Notes Date/Time Note Provider Source 2018-09-17 10:49:00 [id number] [facility] [address] [place], [place] [address] PATIENT NAME: KEVIN CHOWDARY ADMIT DATE: 09/16/18 ACCOUNT NO: [id number] ROOM NO: F.5062 AGE: 18 SEX: M [...] Dallas Dinero III, MD WT: PN:MEGHA/ELSA. Conf#: [id number]/DID#: [id number] Authenticated by Dallas Dinero MD On 09/29/2018 06:10:52 PM at 1811 PATIENT NAME: KEVIN CHOWDARY [facility] 2018-09-16 17:01:00 [id number] [place] [address] PATIENT NAME: KEVIN CHOWDARY ADMIT DATE: 09/16/18 ACCOUNT NO: [id number] ROOM NO: .5062 AGE: 18 SEX: M ADMITTING PHYSICIAN: Radha Villalpando MD ATTENDING PHYSICIAN: Radha Villalpando MD OPERATION DATE: 09/16/2018 PREOPERATIVE DIAGNOSIS: Large right peritonsillar abscess. POSTOPERATIVE DIAGNOSIS: Large right peritonsillar abscess. PROCEDURE PERFORMED: Incision and drainage of right peritonsillar abscess. SURGEON: Dallas Dinero III, MD PUBLICATIONS EDITOR: ANESTHESIA: General anesthesia. COMPLICATIONS: No complications. ESTIMATED BLOOD LOSS: Less than 5 mL. SPECIMENS: Aerobic culture, right peritonsillar abscess. INDICATIONS: The patient is a 18-year-old with a 5- to 8-day history of progressively worsening sore throat. He was started on Zithromax, but did not improve. He was evaluated at the [facility] in [place], but none of the 3 ear, nose, and throat surgeons in [place] were available to care for this youngster. Therefore, he was transferred to the [facility]. A preoperative CT scan showed a [...] cavity were copiously irrigated with saline solution. Ward sump tube was passed through the esophagus [...] Dallas Dinero III, MD WT: OP:MEGHA/ Conf#: [id number]/DID#: [id number] Authenticated by Dallas Dinero MD On 09/29/2018 06:10:42 PM at 1811 PATIENT NAME: KEVIN CHOWDARY [facility] 2018-09-16 16:21:00 [id number] [facility] [address] [place], [place] [address] PATIENT NAME: KEVIN CHOWDARY ADMIT DATE: 09/16/18 ACCOUNT NO: [id number] ROOM NO: [facility] AGE: 18 SEX: M ADMITTING PHYSICIAN: Radha Villalpando MD ATTENDING PHYSICIAN: Radha Villalpando MD CONSULTATION DATE: 09/16/2018 CONSULTING PHYSICIAN: Dallas Dinero III, MD PEDIATRIC OTOLARYNGOLOGY CONSULTATION CHIEF COMPLAINT: Sore throat and difficulty swallowing. HISTORY OF PRESENT ILLNESS: The patient is a 18-year-old with a 5-day history of gradually worsening sore throat and difficulty swallowing. He was seen by a physician in the [facility] and started on azithromycin or Zithromax a couple of days ago with no improvement. When he was not improving, he was seen at the hospital facility in [place], [facility]. He was assessed there and found to have a right peritonsillar abscess by CT scan. Local ear, nose, and throat surgeons of which there are 3 in the [facility] were called, but none of them appeared to be available for this procedure. Therefore, he was transferred to the [facility]. PAST MEDICAL HISTORY: There is no significant past history of recurring sore throats. ____ in the hospital otherwise and no other ongoing illnesses. PAST SURGICAL HISTORY: Unremarkable except for a knee reconstruction procedure in July 2018 that has gone well and he had no anesthetic problems. MEDICATIONS: He had a dose of vancomycin in [place] and a dose of clindamycin here with [...] Dallas Dinero III, MD WT: CON:MEGHA/ELSA. Conf#: [id number]/DID#: [id number] Authenticated by Dallas Dinero MD On 09/29/2018 06:10:46 PM at 1811 PATIENT NAME: KEVIN CHOWDARY [facility]
--- NOTE | 2024-05-16 15:28 | EDPHYS ---
Physician Documentation [facility] Name: Kevin Tinoco Age: 24 yrs Sex: Male : 2000 Arrival Date: 05/16/2024 Time: 15:13 Bed IW7 Private MD: ED Physician Yaya Jacob HPI: 05/16 16:00 This 24 yrs old Male presents to ER via Ambulatory with complaints of Toothache. kb 16:00 Pt is a 24 year old male who presents for toothache that started 4-5 days ago. States kb he has had problems with this tooth in the past and needs to get it pulled, but hasn't had a chance. Denies fever. . Historical: - Allergies: 15:28 PENICILLINS; db - PMHx: 15:28 ADD/ADHD; db - PSHx: 15:28 R ACL repair; db - Immunization history:: Adult Immunizations unknown. - Infectious Disease History:: Denies. - Social history:: Smoking status: Reported history of juuling and/or vaping. ROS: 15:59 Constitutional: As per HPI kb Exam: 15:59 Constitutional: This is a well developed, well nourished patient who is awake, alert, kb and in no acute distress. Head/Face: Normocephalic, atraumatic. Cardiovascular: Regular rate Respiratory: Respirations even and unlabored. No increased work of breathing. Talking in full sentences Skin: Warm, dry with normal turgor. Normal color. MS/ Extremity: Pulses equal, no cyanosis. Neurovascular intact. Full, normal range of motion. Neuro: Awake and alert, GCS 15, oriented to person, place, time, and situation. Moves all extremities. Normal gait. 15:59 ENT: Dental exam: gum swelling, pain, that is moderate, specifically in the upper left second molar (#15), Vital Signs: 15:26 BP 133 / 81; Pulse 16; Resp 62; Temp 98.1; Pulse Ox 97% ; Weight 88.45 kg; Height 5 ft. db 10 in. ; Pain 7/10; 15:26 Body Mass Index 27.98 (88.45 kg, 177.8 cm) db 15:26 Pain Scale: Adult db MDM: 15:19 Patient medically screened. kb 16:00 Differential diagnosis: dental caries, gingivitis, dental abscess, pericoronitis. Data kb reviewed: vital signs, nurses notes. Counseling: I had a detailed discussion with the patient and/or guardian regarding the historical points, exam findings, and any diagnostic results supporting the discharge/admit diagnosis, the need for outpatient follow up, a dentist, to return to the emergency department if symptoms worsen or persist or if there are any questions or concerns that arise at home. Administered Medications: 15:30 Drug: HYDROcodone-acetaminophen PO 5 mg-325 mg 1 tabs PO once Route: PO; db 15:39 Follow up: Response: No adverse reaction db Disposition: 16:35 Co-signature as Attending Physician, Yaya Jacob MD I reviewed the patient's care rn provided by the Advanced Practice Provider and agree with the diagnosis and treatment plan. Disposition Summary: 05/16/24 15:28 Discharge Ordered Notes: Location: Home kb Condition: Stable kb Diagnosis - Dental caries, unspecified - pain kb Followup: kb - With: Emergency Department - When: As needed - Reason: Worsening of condition Followup: kb - With: Private Physician - When: 2 - 3 days - Reason: Recheck today's complaints, Continuance of care, Re-evaluation by your physician Discharge Instructions: - Discharge Summary Sheet kb - Dental Caries, Adult kb - Dental Pain, [id number] kb Forms: - Medication Reconciliation Form kb - Antibiotic Education kb - Prescription Opioid Use kb - Patient Portal Instructions kb - Leadership Thank You Letter kb - Work release form db Prescriptions: - Cephalexin 500 mg Oral Capsule - take 1 capsule ORAL route every 8 hours for 10 days; 30 capsule; Refills: 0, kb Product Selection Permitted - Diclofenac Sodium 75 mg Oral tablet, delayed release (enteric coated) - take 1 tablet ORAL route 2 times per day As needed; 30 tablet; Refills: 0, kb Product Selection Permitted Signatures: Yaquelin Fritz, JONELLE LOYA-Yaya Carmona MD MD rn Benton, Danielle, RN RN db
--- NOTE | 2024-05-16 15:28 | ER ---
Nurse's Notes [facility] Name: Kevin Tinoco Age: 24 yrs Sex: Male : 2000 Arrival Date: 05/16/2024 Time: 15:13 Bed IW7 Private MD: Diagnosis: Dental caries, unspecified-pain Presentation: 05/16 15:26 Chief complaint: Patient states: LEFT UPPER DENTAL PAIN X 1 WEEK. Coronavirus screen: db Client denies travel out of the [place] in the last 14 days. At this time, the client does not indicate any symptoms associated with coronavirus-19. Ebola Screen: Patient negative for fever greater than or equal to 101.5 degrees Fahrenheit, and additional compatible Ebola Virus Disease symptoms Patient denies exposure to infectious person. Patient denies travel to an Ebola-affected area in the 21 days before illness onset. No symptoms or risks identified at this time. Initial Sepsis Screen: Does the patient meet any 2 criteria? No. Patient's initial sepsis screen is negative. Does the patient have a suspected source of infection? No. Patient's initial sepsis screen is negative. Risk Assessment: Do you want to hurt yourself or someone else? Patient reports no desire to harm self or others. Onset of symptoms was May 16, 2024. 15:26 Method Of Arrival: Ambulatory db 15:26 Acuity: STERLING 4 db Triage Assessment: 15:28 General: Appears in no apparent distress. comfortable, Behavior is calm, cooperative. db Pain: Complains of pain in mouth. EENT: Reports pain in left cheek. Neuro: Level of Consciousness is awake, alert, obeys commands, Oriented to person, place, time, situation. Historical: - Allergies: 15:28 PENICILLINS; db - PMHx: 15:28 ADD/ADHD; db - PSHx: 15:28 R ACL repair; db - Immunization history:: Adult Immunizations unknown. - Infectious Disease History:: Denies. - Social history:: Smoking status: Reported history of juuling and/or vaping. Screenin:38 [facility] ED Fall Risk Assessment (Adult) History of falling in the last 3 months, db including since admission No falls in past 3 months (0 pts) Confusion or Disorientation No (0 pts) Intoxicated or Sedated No (0 pts) Impaired Gait No (0 pts) Mobility Assist Device Used No (0 pt) Altered Elimination No (0 pt) Score/Fall Risk Level 0 - 2 = Low Risk Oriented to surroundings, Maintained a safe environment. Abuse screen: Denies threats or abuse. Denies injuries from another. Nutritional screening: No deficits noted. Tuberculosis screening: No symptoms or risk factors identified. Assessment: 15:38 Reassessment: Patient appears in no apparent distress at this time. db Vital Signs: 15:26 BP 133 / 81; Pulse 16; Resp 62; Temp 98.1; Pulse Ox 97% ; Weight 88.45 kg; Height 5 ft. db 10 in. ; Pain 7/10; 15:26 Body Mass Index 27.98 (88.45 kg, 177.8 cm) db 15:26 Pain Scale: Adult db ED Course: 15:16 Patient arrived in ED. im 15:19 Yaquelin Fritz FNP-C [facility]. kb 15:19 Yaya Jacob MD is Attending Physician. kb 15:28 Triage completed. db 15:28 Arm band placed on Patient placed in waiting room. db 15:38 Patient has correct armband on for positive identification. Provided Education on: db DISCHARGE AND FOLLOWUP. 15:38 No provider procedures requiring assistance completed. Patient did not have IV access db during this emergency room visit. Administered Medications: 15:30 Drug: HYDROcodone-acetaminophen PO 5 mg-325 mg 1 tabs PO once Route: PO; db 15:39 Follow up: Response: No adverse reaction db Medication: 15:38 VIS not applicable for this client. db Outcome: 15:28 Discharge ordered by . kb 15:38 Discharged to home ambulatory, with family, db 15:38 Condition: stable 15:38 Discharge instructions given to patient, family, Instructed on discharge instructions, follow up and referral plans. Prescriptions given X 2, 15:39 Patient left the ED. db Signatures: Yaquelin Fritz FNP-C FNP-Ckb Benton, Danielle RN RN db Aretha Carvalho im
[2024-05-16] MEDS ORDERED: HYDROCODONE/APAP 5/325 MG TAB ONE (15:31)
[2024-05-16 15:56] VITALS: BP 133/81; TEMP 98.1; O2SAT 97
== END 2024-05-16 15:39 | disposition home or self-care (01) ==
LOC: ER 15:13
DX: K02.9 Dental caries, unspecified (principal)
CPT/HCPCS: 99283

== ENCOUNTER 2024-12-18 15:17 | Emergency (ER) | payer SELFPAY ==
--- OUTSIDE RECORDS SUMMARY | 2024-12-18 15:20 | XMS REPORT | Continuity of Care Document ---
Author Name Unknown Address [address] [facility]. [address] [place] [address] [facility] Address [address] [facility] [place] [address] Care Team Providers Care Field Crop Harvest Contractor Name Role Phone Unavailable Unavailable Unavailable Payers Payer Name Policy Type Policy Number Effective Date Expirati on Date Source Allergies, Adverse Reactions, Alerts Allergy Name Allergy Type Status Severity Reaction(s) Onset Date Inactive Date Treating Clinician Comments Source Penicill ins DA Active U 09-16 00:00: 00 [facility] Notes Date/Time Note Provider Source 2018-09-17 10:49:00 [id number] [facility] [address] [place], [place] [address] PATIENT NAME: KEVIN CHOWDARY ADMIT DATE: 09/16/18 ACCOUNT NO: [id number] ROOM NO: 5062 AGE: 18 SEX: M [...] Dallas Dinero III, MD WT: PN:MEGHA/ELSA. Conf#: [id number]/DID#: [id number] Authenticated by Dallas Dinero MD On 09/29/2018 06:10:52 PM at 1811 PATIENT NAME: KEVIN CHOWDARY [facility] 2018-09-16 17:01:00 [id number] [place] [address] PATIENT NAME: KEVIN CHOWDARY ADMIT DATE: 09/16/18 ACCOUNT NO: [id number] ROOM NO: 5062 AGE: 18 SEX: M ADMITTING PHYSICIAN: Radha Villalpando MD ATTENDING PHYSICIAN: Radha Villalpando MD OPERATION DATE: 09/16/2018 PREOPERATIVE DIAGNOSIS: Large right peritonsillar abscess. POSTOPERATIVE DIAGNOSIS: Large right peritonsillar abscess. PROCEDURE PERFORMED: Incision and drainage of right peritonsillar abscess. SURGEON: Dallas Dinero III, MD REHABILITATION THERAPY TECHNICIAN: ANESTHESIA: General anesthesia. COMPLICATIONS: No complications. ESTIMATED BLOOD LOSS: Less than 5 mL. SPECIMENS: Aerobic culture, right peritonsillar abscess. INDICATIONS: The patient is a 18-year-old with a 5- to 8-day history of progressively worsening sore throat. He was started on Zithromax, but did not improve. He was evaluated at the [facility] in [place], but none of the 3 ear, nose, and throat surgeons in [place] were available to care for this youngster. Therefore, he was transferred to the [facility]. A preoperative CT scan showed a large [...] cavity were copiously irrigated with saline solution. Dallas sump tube was passed through the esophagus [...] Dallas Dinero III, MD WT: OP:MEGHA/ Conf#: [id number]/DID#: [id number] Authenticated by Dallas Dinero MD On 09/29/2018 06:10:42 PM at 1811 PATIENT NAME: KEVIN CHOWDARY [facility] 2018-09-16 16:21:00 [id number] [facility] [address] [place], [place] [address] PATIENT NAME: KEVIN CHOWDARY ADMIT DATE: 09/16/18 ACCOUNT NO: [id number] ROOM NO: [facility] AGE: 18 SEX: M ADMITTING PHYSICIAN: Radha Villalpando MD ATTENDING PHYSICIAN: Radha Villalpando MD CONSULTATION DATE: 09/16/2018 CONSULTING PHYSICIAN: Dallas Dinero III, MD PEDIATRIC OTOLARYNGOLOGY CONSULTATION CHIEF COMPLAINT: Sore throat and difficulty swallowing. HISTORY OF PRESENT ILLNESS: The patient is a 18-year-old with a 5-day history of gradually worsening sore throat and difficulty swallowing. He was seen by a physician in the [facility] and started on azithromycin or Zithromax a couple of days ago with no improvement. When he was not improving, he was seen at the hospital facility in [place], [facility]. He was assessed there and found to have a right peritonsillar abscess by CT scan. Local ear, nose, and throat surgeons of which there are 3 in the [facility] were called, but none of them appeared to be available for this procedure. Therefore, he was transferred to the [facility]. PAST MEDICAL HISTORY: There is no significant past history of recurring sore throats. ____ in the hospital otherwise and no other ongoing illnesses. PAST SURGICAL HISTORY: Unremarkable except for a knee reconstruction procedure in July 2018 that has gone well and he had no anesthetic problems. MEDICATIONS: He had a dose of vancomycin in [place] and a dose of clindamycin here with [...] Dallas Dinero III, MD WT: CON:MEGHA/ELSA. Conf#: [id number]/DID#: [id number] Authenticated by Dallas Dinero MD On 09/29/2018 06:10:46 PM at 1811 PATIENT NAME: KEVIN CHOWDARY [facility]
[2024-12-18] MEDS ORDERED: ONDANSETRON 4 MG/2 ML VIAL ONE (15:47)
[2024-12-18] MEDS ORDERED: NA CHLORIDE 0.9% 1,000 ML ONE (15:48)
[2024-12-18] MEDS ORDERED: LOPERAMIDE HCL 2 MG CAPSULE ONE (15:48)
[2024-12-18] MEDS ORDERED: KETOROLAC 30 MG/ML INJ ONE (15:48)
[2024-12-18 15:53] LABS: Absolute Eosinophils 0.1 K/uL (0-0.5); Absolute Lymphocytes (CBC) 1.8 K/uL (0.7-4.9); Absolute Monocytes 0.9 K/uL (0.1-1.3); Absolute Neutrophil 5.3 K/uL (1.8-8.0); Basophils % 0.3 % (0-1.3); Eosinophils % 0.8 % (0-4.4); Hematocrit 40.2 % (39.6-49.0); Hemoglobin 13.8 g/dL (13.6-17.9); Lymphocytes % 22.2 % (15.3-44.8); MCH 28.5 pg (27.0-35.0); MCHC 34.4 g/dL (32.0-36.0); MCV 82.7 fL (80-100); MPV 8.1 fL (7.6-11.3); Monocytes % 11.4 % (3.3-12.3); Neutrophils % 65.3 % (41.7-73.7); Nucleated Red Blood Cells % 0.1 % (0-0); Platelets 265 thou/uL (152-406); RBC Red Blood Cell Count 4.86 M/uL (4.33-5.43); Red Cell Distribution Width 13.7 % (12.1-15.2)
[2024-12-18 16:09] LABS: Albumin 3.5 g/dL (3.4-5.0); Albumin/Globulin Ratio 0.9 (1.1-1.8); Anion Gap 5.3 mEq/L (5.0-15.0); Bilirubin Total 0.3 mg/dL (0.2-1.0); Globulin 3.8 g/dL (2.3-3.5); Potassium 3.3 mEq/L (3.5-5.1); Protein, Total 7.3 g/dL (6.4-8.2)
--- NOTE | 2024-12-18 16:21 | ER ---
Nurse's Notes [facility] [place] Name: Kevin Tinoco Age: 24 yrs Sex: Male : 2000 Arrival Date: 12/18/2024 Time: 15:17 Bed 5 Private MD: Diagnosis: Viral gastroenteritis Presentation: 12/18 15:30 Chief complaint: Patient states: he has been having nausea, vomiting and diarrhea since ap3 Wednesday12/15/24, but he reports it has since started improving. Coronavirus screen: At this time, the client does not indicate any symptoms associated with coronavirus-19. Coronavirus screen: Client presents with at least one sign or symptom that may indicate coronavirus-19. Ebola Screen: No symptoms or risks identified at this time. Initial Sepsis Screen: Does the patient meet any 2 criteria? No. Patient's initial sepsis screen is negative. Does the patient have a suspected source of infection? No. Patient's initial sepsis screen is negative. Risk Assessment: Do you want to hurt yourself or someone else? Patient reports no desire to harm self or others. Onset of symptoms was December 15, 2024. 15:30 Method Of Arrival: Ambulatory ap3 15:30 Acuity: STERLING 3 ap3 Triage Assessment: 15:32 General: Appears ill, Behavior is calm, cooperative, appropriate for age, Reports ap3 chills for feeling ill for fatigue for. Pain: Complains of pain in throat. EENT: Reports nasal congestion. Neuro: Level of Consciousness is awake, alert, obeys commands, Oriented to person, place, time, situation, Appropriate for age. Cardiovascular: Patient's skin is warm and dry. Respiratory: Airway is patent Respiratory effort is even, unlabored, Respiratory pattern is regular, symmetrical. GI: Reports diarrhea, nausea, vomiting. Historical: - Allergies: 15:32 PENICILLINS; ap3 - PMHx: 15:32 ADD/ADHD; ap3 - PSHx: 15:32 R ACL repair; ap3 - Immunization history:: Client reports having NOT received the Covid vaccine. Flu vaccine is up to date. - Infectious Disease History:: Denies. - Social history:: Smoking status: Reported history of juuling and/or vaping. Screenin:33 [facility] ED Fall Risk Assessment (Adult) History of falling in the last 3 months, ap3 including since admission No falls in past 3 months (0 pts) Confusion or Disorientation No (0 pts) Intoxicated or Sedated No (0 pts) Impaired Gait No (0 pts) Mobility Assist Device Used No (0 pt) Altered Elimination No (0 pt) Score/Fall Risk Level 0 - 2 = Low Risk Oriented to surroundings, Maintained a safe environment, Educated pt \T\ family on fall prevention, incl call for assistance when getting out of bed, Assessed \T\ reinforced patient's understanding of fall precautions, Hourly rounding (assess needs \T\ fall precautionary measures) done, Used ambulatory aids as needed (educated on \T\ assisted with). Abuse screen: Denies threats or abuse. Nutritional screening: No deficits noted. Tuberculosis screening: No symptoms or risk factors identified. Assessment: 16:11 General: Appears in no apparent distress. well groomed, well developed, well nourished, me1 Behavior is calm, cooperative, appropriate for age, Reports he has been having nausea, vomiting and diarrhea since Wednesday12/15/24, but he reports it has since started improving. Pain: Complains of pain in abdomen Pain does not radiate. Pain currently is 4 out of 10 on a pain scale. Quality of pain is described as crampy, Pain began 2-3 days ago. Is continuous. Neuro: Level of Consciousness is awake, alert, obeys commands, Oriented to person, place, time, situation, Appropriate for age. Cardiovascular: Patient's skin is warm and dry. Respiratory: Airway is patent Respiratory effort is even, unlabored, Respiratory pattern is regular, symmetrical. GI: Reports diarrhea, nausea, vomiting, since Wednesday. GI: Abdomen is non-distended, Bowel sounds present X 4 quads. : No signs and/or symptoms were reported regarding the genitourinary system. EENT: No signs and/or symptoms were reported regarding the EENT system. Derm: Skin is intact, is healthy with good turgor, Skin is pink, warm \T\ dry. Musculoskeletal: No signs and/or symptoms reported regarding the musculoskeletal system. Vital Signs: 15:30 BP 135 / 92; Pulse 86; Resp 18; Temp 98.2; Pulse Ox 100% ; Weight 88.45 kg; Height 5 ap3 ft. 9 in. ; Pain 12/21; 16:00 BP 118 / 64; Pulse 76; Resp 15; Pulse Ox 99% ; me1 16:30 BP 123 / 65; Pulse 68; Resp 16; Temp 98.2; Pulse Ox 100% ; me1 15:30 Body Mass Index 28.80 (88.45 kg, 175.26 cm) ap3 15:30 Pain Scale: Adult ap3 ED Course: 15:21 Patient arrived in ED. cj3 15:22 Alana Galeana [facility]C [facility]. sb4 15:22 Yaya Jacob MD is Attending Physician. sb4 15:32 Triage completed. ap3 15:33 Kelin Canales, SAMIR is Primary Nurse. me1 15:33 Arm band placed on right wrist. ap3 15:45 CBC with Diff Sent. me1 15:46 CMP Sent. me1 15:46 Lipase Sent. me1 15:46 Initial lab(s) drawn, by me, sent to lab. Inserted saline lock: 22 gauge in right me1 antecubital area, using aseptic technique. 16:11 Patient has correct armband on for positive identification. Bed in low position. Call me1 light in reach. Side rails up X2. Provided Education on: POC. Verbalized understanding.. Client placed on continuous cardiac and pulse oximetry monitoring. NIBP monitoring applied. Pulse ox on. NIBP on. 16:11 No provider procedures requiring assistance completed. me1 16:53 IV discontinued, intact, bleeding controlled, No redness/swelling at site. Pressure me1 dressing applied. Administered Medications: 15:53 Drug: TORadol - Ketorolac IVP 15 mg IVP once Route: IVP; Site: right antecubital; me1 16:11 Follow up: Response: No adverse reaction; Pain is decreased me1 15:53 Drug: Ondansetron IVP 4 mg IVP once; over 2 minutes Route: IVP; Site: right antecubital;me1 16:11 Follow up: Response: No adverse reaction; Nausea is decreased me1 15:53 Drug: NS 0.9% IV 1000 ml IV at 1 bolus Per protocol; to be given as a bolus over 60 me1 minutes Route: IV; Rate: 1 bolus; Site: right antecubital; 16:44 Follow up: Response: No adverse reaction; IV Status: Completed infusion; IV Intake: me1 1000ml 15:53 Drug: Loperamide PO 4 mg PO once Route: PO; me1 16:25 Follow up: Response: No adverse reaction me1 16:23 Drug: Potassium PO Effervescent Tablet 25 mEq PO once; dissolve in 4 ounces of water or me1 juice Route: PO; 16:36 Follow up: Response: No adverse reaction me1 Medication: 16:11 VIS not applicable for this client. me1 Intake: 16:44 IV: 1000ml; Total: 1000ml. me1 Outcome: 16:20 Discharge ordered by . sb4 16:53 Discharged to home ambulatory, me1 16:53 Condition: stable 16:53 Discharge instructions given to patient, Instructed on discharge instructions, follow up and referral plans. Demonstrated understanding of instructions, follow-up care, 16:54 Patient left the ED. me1 Signatures: Yuli Gamboa RN RN ap3 Alana Galeana, PA-C PA-C sb4 Kelin Canales RN RN me1 Vanessa Lay cj3 Corrections: (The following items were deleted from the chart) 16:11 15:30 Chief complaint: Patient states: he has been having nausea, vomiting and diarrhea me1 since Wednesday12/15/24, but he reports it has since started improving. ap3
--- NOTE | 2024-12-18 16:21 | EDPHYS ---
Physician Documentation [facility] Name: Kevin Tinoco Age: 24 yrs Sex: Male : 2000 Arrival Date: 12/18/2024 Time: 15:17 Bed 5 Private MD: ED Physician Yaya Jacob HPI: 12/18 15:33 This 24 yrs old Male presents to ER via Ambulatory with complaints of Fever, sb4 Nausea/Vomiting/Diarrhea. 15:33 Patient reports nausea, vomiting, and diarrhea x 48 hours. He states that the vomiting sb4 has resolved but he has continued to have diarrhea. States that he still feels a little nauseous but has been able to hold down soup today. Denies any abdominal pain. States he had a low-grade fever a few days ago but that has resolved. Historical: - Allergies: 15:32 PENICILLINS; ap3 - PMHx: 15:32 ADD/ADHD; ap3 - PSHx: 15:32 R ACL repair; ap3 - Immunization history:: Client reports having NOT received the Covid vaccine. Flu vaccine is up to date. - Infectious Disease History:: Denies. - Social history:: Smoking status: Reported history of juuling and/or vaping. ROS: 15:33 Constitutional: Negative for fever, chills, and weight loss, sb4 15:33 Abdomen/GI: Positive for nausea, vomiting, and diarrhea, 15:33 All other systems are negative, Exam: 15:33 Head/Face: Normocephalic, atraumatic. Eyes: Extra-ocular motions intact. Periorbital sb4 areas with no swelling, redness, or edema. ENT: Mucous membranes moist. Cardiovascular: Regular rate and rhythm with a normal S1 and S2. Respiratory: No increased work of breathing, no retractions or nasal flaring. Abdomen/GI: Soft, non-tender, no distension. Skin: Warm, dry with normal turgor. Normal color with no rashes, no lesions, and no evidence of cellulitis. 15:33 Constitutional: The patient appears alert, awake, pale, Vital Signs: 15:30 BP 135 / 92; Pulse 86; Resp 18; Temp 98.2; Pulse Ox 100% ; Weight 88.45 kg; Height 5 ap3 ft. 9 in. ; Pain 4/10; 16:00 BP 118 / 64; Pulse 76; Resp 15; Pulse Ox 99% ; me1 16:30 BP 123 / 65; Pulse 68; Resp 16; Temp 98.2; Pulse Ox 100% ; me1 15:30 Body Mass Index 28.80 (88.45 kg, 175.26 cm) ap3 15:30 Pain Scale: Adult ap3 MDM: 15:22 Medical Screening Exam initiated sb4 16:21 Data reviewed: vital signs, nurses notes, lab test result(s), and as a result, I will sb4 discharge patient. Counseling: I had a detailed discussion with the patient and/or guardian regarding the historical points, exam findings, and any diagnostic results supporting the discharge/admit diagnosis, lab results, to return to the emergency department if symptoms worsen or persist or if there are any questions or concerns that arise at home. 12/18 15:30 Order name: CBC with Diff; Complete Time: 16:00 sb4 12/18 15:30 Order name: CMP; Complete Time: 16:10 sb4 12/18 15:30 Order name: Lipase; Complete Time: 16:10 sb4 12/18 15:30 Order name: IV Saline Lock; Complete Time: 15:45 sb4 12/18 15:30 Order name: Labs collected and sent; Complete Time: 15:45 sb4 Administered Medications: 15:53 Drug: TORadol - Ketorolac IVP 15 mg IVP once Route: IVP; Site: right antecubital; me1 16:11 Follow up: Response: No adverse reaction; Pain is decreased me1 15:53 Drug: Ondansetron IVP 4 mg IVP once; over 2 minutes Route: IVP; Site: right antecubital;me1 16:11 Follow up: Response: No adverse reaction; Nausea is decreased me1 15:53 Drug: NS 0.9% IV 1000 ml IV at 1 bolus Per protocol; to be given as a bolus over 60 me1 minutes Route: IV; Rate: 1 bolus; Site: right antecubital; 16:44 Follow up: Response: No adverse reaction; IV Status: Completed infusion; IV Intake: me1 1000ml 15:53 Drug: Loperamide PO 4 mg PO once Route: PO; me1 16:25 Follow up: Response: No adverse reaction me1 16:23 Drug: Potassium PO Effervescent Tablet 25 mEq PO once; dissolve in 4 ounces of water or me1 juice Route: PO; 16:36 Follow up: Response: No adverse reaction me1 Disposition: 12/19 06:59 Co-signature as Attending Physician, Yaya Jacob MD I reviewed the patient's care rn provided by the Advanced Practice Provider and agree with the diagnosis and treatment plan. Disposition Summary: 12/18/24 16:20 Discharge Ordered Notes: Location: Home sb4 Problem: new sb4 Symptoms: have improved sb4 Condition: Stable sb4 Diagnosis - Viral gastroenteritis sb4 Followup: sb4 - With: Private Physician - When: 1 week - Reason: Recheck today's complaints, Re-evaluation by your physician Discharge Instructions: - Discharge Summary Sheet sb4 - Food Choices to Help Relieve Diarrhea, Adult sb4 - Viral Gastroenteritis, Adult, [id number]-gw-[id number] sb4 Forms: - Work release form sb4 - Patient Portal Instructions sb4 - Leadership Thank You Letter sb4 Signatures: Dispatcher [employer] EDYaya Chu MD MD rn Prokisch, Amanda, RN RN amy3 Alana Galeana, PA-C PA-C sb4 Kelin Canales RN RN me1
[2024-12-18] MEDS ORDERED: POTASSIUM 25 MEQ EFFERV TAB ONE (16:22)
[2024-12-18 17:02] VITALS: TEMP 98.2
[2024-12-18 17:05] VITALS: BP 123/65; O2SAT 100
== END 2024-12-18 16:54 | disposition home or self-care (01) ==
LOC: ER 15:17
DX: A08.4 Viral intestinal infection, unspecified (principal)
CPT/HCPCS: 36415; 80053; 83690; 85025; 96361; 96374; 96375; 99284; J2405; J7030

== ENCOUNTER 2025-01-21 06:39 | Emergency (ER) | payer SELFPAY ==
--- OUTSIDE RECORDS SUMMARY | 2025-01-21 06:42 | XMS REPORT | Continuity of Care Document ---
Author Name Unknown Address [address] [place] [address] [facility] Address [address] [place] [address] Care Team Providers Care Battery Assembler Name Role Phone Unavailable Unavailable Unavailable Payers Payer Name Policy Type Policy Number Effective Date Expirati on Date Source Allergies, Adverse Reactions, Alerts Allergy Name Allergy Type Status Severity Reaction(s) Onset Date Inactive Date Treating Clinician Comments Source Penicill ins DA Active U 09-16 00:00: 00 [facility] Notes Date/Time Note Provider Source 2018-09-17 10:49:00 [id number] [facility] [address], [place] [address] PATIENT NAME: KEVIN CHOWDARY ADMIT DATE: 09/16/18 ACCOUNT NO: [id number] ROOM NO: 5062 AGE: 18 SEX: M [...] Dallas Dinero III, MD WT: PN:MEGHA/ELSA. Conf#: [id number]/DID#: [id number] Authenticated by Dallas Dinero MD On 09/29/2018 06:10:52 PM at 1811 PATIENT NAME: KEVIN CHOWDARY [facility] 2018-09-16 17:01:00 [id number] [place] [address] PATIENT NAME: KEVIN CHOWDARY ADMIT DATE: 09/16/18 ACCOUNT NO: [id number] ROOM NO: 5062 AGE: 18 SEX: M ADMITTING PHYSICIAN: Radha Villalpando MD ATTENDING PHYSICIAN: Radha Villalpando MD OPERATION DATE: 09/16/2018 PREOPERATIVE DIAGNOSIS: Large right peritonsillar abscess. POSTOPERATIVE DIAGNOSIS: Large right peritonsillar abscess. PROCEDURE PERFORMED: Incision and drainage of right peritonsillar abscess. SURGEON: Dallas Dinero III, MD EARTH OBSERVATIONS CHIEF SCIENTIST: ANESTHESIA: General anesthesia. COMPLICATIONS: No complications. ESTIMATED BLOOD LOSS: Less than 5 mL. SPECIMENS: Aerobic culture, right peritonsillar abscess. INDICATIONS: The patient is a 18-year-old with a 5- to 8-day history of progressively worsening sore throat. He was started on Zithromax, but did not improve. He was evaluated at the [facility] in [place], but none of the 3 ear, nose, and throat surgeons in [place] were available to care for this youngster. Therefore, he was transferred to the [facility]. A preoperative CT scan showed a [...] cavity were copiously irrigated with saline solution. Meigs sump tube was passed through the esophagus [...] Dallas Dinero III, MD WT: OP:MEGHA/ Conf#: [id number]/DID#: [id number] Authenticated by Dallas Dinero MD On 09/29/2018 06:10:42 PM at 1811 PATIENT NAME: KEVIN CHOWDARY [facility] 2018-09-16 16:21:00 [id number] [facility] [address] [place], [place] [address] PATIENT NAME: KEVIN CHOWDARY ADMIT DATE: 09/16/18 ACCOUNT NO: [id number] ROOM NO: [facility] AGE: 18 SEX: M ADMITTING PHYSICIAN: Radha Villalpando MD ATTENDING PHYSICIAN: Radha Villalpando MD CONSULTATION DATE: 09/16/2018 CONSULTING PHYSICIAN: Dallas Dinero III, MD PEDIATRIC OTOLARYNGOLOGY CONSULTATION CHIEF COMPLAINT: Sore throat and difficulty swallowing. HISTORY OF PRESENT ILLNESS: The patient is a 18-year-old with a 5-day history of gradually worsening sore throat and difficulty swallowing. He was seen by a physician in the [facility] and started on azithromycin or Zithromax a couple of days ago with no improvement. When he was not improving, he was seen at the hospital facility in [place], [facility]. He was assessed there and found to have a right peritonsillar abscess by CT scan. Local ear, nose, and throat surgeons of which there are 3 in the [facility] were called, but none of them appeared to be available for this procedure. Therefore, he was transferred to the [facility]. PAST MEDICAL HISTORY: There is no significant past history of recurring sore throats. ____ in the hospital otherwise and no other ongoing illnesses. PAST SURGICAL HISTORY: Unremarkable except for a knee reconstruction procedure in July 2018 that has gone well and he had no anesthetic problems. MEDICATIONS: He had a dose of vancomycin in [place] and a dose of clindamycin here with [...] Dallas Dinero III, MD WT: CON:MEGHA/ELSA. Conf#: [id number]/DID#: [id number] Authenticated by Dallas Dinero MD On 09/29/2018 06:10:46 PM at 1811 PATIENT NAME: KEVIN CHOWDARY [facility]
[2025-01-21] MEDS ORDERED: ONDANSETRON 4 MG/2 ML VIAL ONE (06:49)
[2025-01-21] MEDS ORDERED: FAMOTIDINE 20 MG/2 ML VIAL IV ONE (06:50)
[2025-01-21] MEDS ORDERED: MORPHINE 4 MG/ML SYR ONE (06:50)
[2025-01-21] MEDS ORDERED: NA CHLORIDE 0.9% 1,000 ML ONE (06:50)
[2025-01-21 07:17] LABS: Absolute Eosinophils 0.1 K/uL (0-0.5); Absolute Lymphocytes (CBC) 1.6 K/uL (0.7-4.9); Absolute Monocytes 0.7 K/uL (0.1-1.3); Absolute Neutrophil 4.4 K/uL (1.8-8.0); Basophils % 0.4 % (0-1.3); Eosinophils % 0.8 % (0-4.4); Hematocrit 41.5 % (39.6-49.0); Hemoglobin 14.2 g/dL (13.6-17.9); Lymphocytes % 23.7 % (15.3-44.8); MCH 28.2 pg (27.0-35.0); MCHC 34.1 g/dL (32.0-36.0); MCV 82.6 fL (80-100); MPV 8.5 fL (7.6-11.3); Neutrophils % 64.1 % (41.7-73.7); Nucleated Red Blood Cells % 0.3 % (0-0); Platelets 274 thou/uL (152-406); RBC Red Blood Cell Count 5.02 M/uL (4.33-5.43); Red Cell Distribution Width 13.4 % (12.1-15.2)
[2025-01-21 07:34] LABS: Albumin 3.6 g/dL (3.4-5.0); Albumin/Globulin Ratio 0.9 (1.1-1.8); Anion Gap 8.7 mEq/L (5.0-15.0); Bilirubin Total 0.3 mg/dL (0.2-1.0); Globulin 3.8 g/dL (2.3-3.5); Potassium 3.7 mEq/L (3.5-5.1); Protein, Total 7.4 g/dL (6.4-8.2)
--- NOTE | 2025-01-21 08:04 | EDPHYS ---
Physician Documentation [facility] Name: Kevin Tinoco Age: 24 yrs Sex: Male : 2000 Arrival Date: 01/21/2025 Time: 06:39 Bed 18 Private MD: ED Physician Yaya Jacob HPI: 01/21 07:22 This 24 yrs old Male presents to ER via Ambulatory with complaints of Diarrhea, rn Abdominal Cramping. 07:22 The patient presents to the emergency department with diarrhea. rn 07:22 Onset: The symptoms/episode began/occurred last night. Possible causes: unknown. The rn symptoms are aggravated by nothing. The symptoms are alleviated by nothing. Severity of symptoms: At their worst the symptoms were mild in the emergency department the symptoms are unchanged. The patient has experienced similar episodes in the past. Pt reports abdominal cramping and diarrhea since last night. Patient reports ate crab yesterday but denies any vomiting. No fever or chills. Cramping only during diarrhea episodes. No blood in stool. Denies nausea or vomiting. No known sick contacts.. Historical: - Allergies: 06:56 PENICILLINS; lg3 - Home Meds: 06:56 None [Active]; lg3 - PMHx: 06:56 ADD/ADHD; lg3 - PSHx: 06:56 R ACL repair; lg3 - Immunization history:: Adult Immunizations up to date. - Infectious Disease History:: Denies. - Social history:: Smoking status: Reported history of juuling and/or vaping. Patient/guardian denies using alcohol, street drugs. - Family history:: not pertinent. - Hospitalizations: : No recent hospitalization is reported. ROS: 07:24 Constitutional: Negative for fever, chills, and weight loss, Cardiovascular: Negative rn for chest pain, palpitations, and edema, Respiratory: Negative for shortness of breath, cough, wheezing, and pleuritic chest pain, Abdomen/GI: Positive for abdominal cramping and diarrhea, nonbloody MS/Extremity: Negative for injury and deformity, Skin: Negative for injury, rash, and discoloration, Neuro: Negative for headache, weakness, numbness, tingling, and seizure, Exam: 07:24 Constitutional: This is a well developed, well nourished patient who is awake, alert, rn and in no acute distress. ENT: Moist mucous membranes Cardiovascular: Regular rate and rhythm. No pulse deficits. Respiratory: No increased work of breathing, no retractions or nasal flaring. Abdomen/GI: Soft, nontender, no peritoneal signs MS/ Extremity: Pulses equal, no cyanosis. Neuro: Awake and alert, GCS 15 Vital Signs: 06:54 BP 154 / 84; Pulse 77; Resp 16 S; Temp 97.8(O); Pulse Ox 100% on R/A; Weight 86.18 kg lg3 (R); Height 5 ft. 9 in. (R); Pain 3/10; 08:20 BP 133 / 83; Pulse 62; Resp 16 S; Pulse Ox 98% on R/A; aa5 06:54 Body Mass Index 28.06 (86.18 kg, 175.26 cm) lg3 06:54 Pain Scale: Adult lg3 MDM: 06:44 Medical Screening Exam initiated ana 08:02 Differential diagnosis: Nonspecific abd pain, gastritis, diverticulitis, viral rn gastroenteritis, gastroenteritis. Differential diagnosis: pancreatitis. Data reviewed: vital signs, nurses notes. Data reviewed: lab test result(s), and as a result, I will discharge patient. Counseling: I had a detailed discussion with the patient and/or guardian regarding the historical points, exam findings, and any diagnostic results supporting the discharge/admit diagnosis, lab results, the need for outpatient follow up, to return to the emergency department if symptoms worsen or persist or if there are any questions or concerns that arise at home. Special discussion: I discussed with the patient/guardian in detail that at this point there is no indication for admission to the hospital. It is understood, however, that if the symptoms persist or worsen the patient needs to return immediately for re-evaluation. ED course: No acute findings and workup today. Mild elevation of lipase but patient without vomiting or abdominal pain. No indication for emergent imaging at this time. Will discharge home with return precautions and as needed Zofran.. 01/21 06:47 Order name: CBC with Diff; Complete Time: 07:27 [facility] 01/21 06:47 Order name: CMP; Complete Time: 07:46 [facility] 01/21 06:47 Order name: Lipase; Complete Time: 07:46 [facility] 01/21 06:47 Order name: Stool Culture [facility] 01/21 06:47 Order name: IV Saline Lock; Complete Time: 06:59 [facility] 01/21 06:47 Order name: Labs collected and sent; Complete Time: 06:59 [facility] Administered Medications: 06:59 Drug: Famotidine IVP 20 mg IVP once; dilute with 10 mL 0.9% NaCl; give over 2 minutes lg3 Route: IVP; Site: right antecubital; 07:10 Follow up: Response: No adverse reaction aa5 06:59 Drug: Ondansetron IVP 4 mg IVP once; over 2 minutes Route: IVP; Site: right antecubital;lg3 07:10 Follow up: Response: No adverse reaction aa5 06:59 Drug: morphine IVP or IV 4 mg IVP once over 4 mins Route: IVP; Infused Over: 4 mins; lg3 Site: right antecubital; 07:10 Follow up: Response: No adverse reaction aa5 06:59 Drug: NS 0.9% IV 1000 ml IV at 1 bolus Per protocol; to be given as a bolus over 60 lg3 minutes Route: IV; Rate: 1 bolus; Site: right antecubital; 07:59 Follow up: IV Status: Completed infusion; IV Intake: 1000ml aa5 08:22 Drug: Diphenoxylate-Atropine PO 2 tabs PO once Route: PO; aa5 08:22 Follow up: Response: No adverse reaction; Medication administered at discharge. aa5 Disposition Summary: 01/21/25 08:04 Discharge Ordered Notes: Location: Home rn Problem: new rn Symptoms: have improved rn Condition: Stable rn Diagnosis - Diarrhea, unspecified rn Followup: rn - With: Private Physician - When: As needed - Reason: Recheck today's complaints, Re-evaluation by your physician Discharge Instructions: - Discharge Summary Sheet rn - Diarrhea, Adult rn Forms: - Medication Reconciliation Form rn - Antibiotic cook morning - Prescription Opioid Use rn - Patient Portal Instructions rn - Leadership Thank You Letter rn - Work release form eb Prescriptions: - ondansetron 4 mg Oral Tablet,disintegrating - take 1 tablet ORAL route every 8 hours As needed as needed for nausea and rn vomiting; 12 tablet; Refills: 0, Product Selection Permitted Signatures: Dispatcher [employer] Bryon Bullock MD MD cha Nieto, Roman, MD MD rn Calderon, Audri RN RN aa5 Able, Krystin, RN RN lg3 Corrections: (The following items were deleted from the chart) 06:48 06:48 CBC+H.LAB.BRZ ordered. EDMS EDMS 06:48 06:48 COMPREHENSIVE METABOLIC PANEL+C.LAB.BRZ ordered. EDMS EDMS 06:48 06:48 LIPASE+C.LAB.BRZ ordered. EDMS EDMS 06:48 06:48 Stool Culture+BA.LAB.BRZ ordered. EDMS EDMS
--- NOTE | 2025-01-21 08:04 | ER ---
Nurse's Notes [facility] Name: Kevin Tinoco Age: 24 yrs Sex: Male : 2000 Arrival Date: 01/21/2025 Time: 06:39 Bed 18 Private MD: Diagnosis: Diarrhea, unspecified Presentation: 01/21 06:54 Chief complaint: Patient states: diarrhea and abdominal pain X1 day. Coronavirus lg3 screen: Client denies travel out of the [place] in the last 14 days. At this time, the client does not indicate any symptoms associated with coronavirus-19. Ebola Screen: No symptoms or risks identified at this time. Initial Sepsis Screen: Does the patient meet any 2 criteria? No. Patient's initial sepsis screen is negative. Does the patient have a suspected source of infection? No. Patient's initial sepsis screen is negative. Risk Assessment: Do you want to hurt yourself or someone else? Patient reports no desire to harm self or others. Onset of symptoms was January 20, 2025. 06:54 Method Of Arrival: Ambulatory lg3 06:54 Acuity: STERLING 3 lg3 Triage Assessment: 06:56 General: Appears in no apparent distress. comfortable, Behavior is calm, cooperative. lg3 Pain: Complains of pain in abdomen Pain does not radiate. EENT: No deficits noted. No signs and/or symptoms were reported regarding the EENT system. Neuro: No deficits noted. [place] Agitation-Sedation Scale (RASS): 0 - Alert and Calm Level of Consciousness is awake, alert, obeys commands, Oriented to person, place, time, situation. Cardiovascular: No deficits noted. Denies chest pain, shortness of breath, Capillary refill < 3 seconds Clubbing of nail beds is absent JVD is absent Patient's skin is warm and dry. Respiratory: No deficits noted. Airway is patent Respiratory effort is even, unlabored, Respiratory pattern is regular, symmetrical. GI: Abdomen is round non-distended, Reports lower abdominal pain, upper abdominal pain, diarrhea. : No signs and/or symptoms were reported regarding the genitourinary system. Derm: No deficits noted. No signs and/or symptoms reported regarding the dermatologic system. Skin is intact, is healthy with good turgor, Skin is dry, Skin is normal, Skin temperature is warm. Musculoskeletal: No deficits noted. No signs and/or symptoms reported regarding the musculoskeletal system. Circulation, motion, and sensation intact. Range of motion: intact in all extremities. Historical: - Allergies: 06:56 PENICILLINS; lg3 - Home Meds: 06:56 None [Active]; lg3 - PMHx: 06:56 ADD/ADHD; lg3 - PSHx: 06:56 R ACL repair; lg3 - Immunization history:: Adult Immunizations up to date. - Infectious Disease History:: Denies. - Social history:: Smoking status: Reported history of juuling and/or vaping. Patient/guardian denies using alcohol, street drugs. - Family history:: not pertinent. - Hospitalizations: : No recent hospitalization is reported. Screenin:58 [facility] ED Fall Risk Assessment (Adult) History of falling in the last 3 months, lg3 including since admission No falls in past 3 months (0 pts) Confusion or Disorientation No (0 pts) Intoxicated or Sedated No (0 pts) Impaired Gait No (0 pts) Mobility Assist Device Used No (0 pt) Altered Elimination No (0 pt) Score/Fall Risk Level 0 - 2 = Low Risk Oriented to surroundings, Maintained a safe environment, Educated pt \T\ family on fall prevention, incl call for assistance when getting out of bed, Assessed \T\ reinforced patient's understanding of fall precautions. Abuse screen: Denies threats or abuse. Denies injuries from another. Nutritional screening: No deficits noted. Tuberculosis screening: No symptoms or risk factors identified. Assessment: 06:58 General: see triage assessment. lg3 07:10 General: Appears comfortable, Behavior is calm, cooperative. Pain: Complains of pain in aa5 abdomen Pain currently is 3 out of 10 on a pain scale. Quality of pain is described as crampy, Is intermittent. Neuro: Level of Consciousness is awake, alert, obeys commands, Oriented to person, place, time, situation. Cardiovascular: Patient's skin is warm and dry. Respiratory: Airway is patent Respiratory effort is even, unlabored, Respiratory pattern is regular, symmetrical. GI: Abdomen is round non-distended, Bowel sounds present X 4 quads. Abd is soft and non tender X 4 quads. Reports diarrhea, Patient currently denies bloody stool, nausea, vomiting. : No signs and/or symptoms were reported regarding the genitourinary system. EENT: No signs and/or symptoms were reported regarding the EENT system. Derm: Skin is pink, warm \T\ dry. Musculoskeletal: Range of motion: intact in all extremities. 08:20 Reassessment: Patient is alert, oriented x 3, equal unlabored respirations, skin aa5 warm/dry/pink. Vital Signs: 06:54 BP 154 / 84; Pulse 77; Resp 16 S; Temp 97.8(O); Pulse Ox 100% on R/A; Weight 86.18 kg lg3 (R); Height 5 ft. 9 in. (R); Pain 3/10; 08:20 BP 133 / 83; Pulse 62; Resp 16 S; Pulse Ox 98% on R/A; aa5 06:54 Body Mass Index 28.06 (86.18 kg, 175.26 cm) lg3 06:54 Pain Scale: Adult lg3 ED Course: 06:43 Patient arrived in ED. gm2 06:44 Bryon Arredondo MD is Attending Physician. [facility] 06:56 Triage completed. lg3 06:56 Arm band placed on right wrist. lg3 06:58 Patient has correct armband on for positive identification. Placed in gown. Bed in low lg3 position. Call light in reach. Side rails up X 1. Client placed on continuous cardiac and pulse oximetry monitoring. NIBP monitoring applied. Door closed. Noise minimized. Warm blanket given. Pillow given. 06:58 Initial lab(s) drawn, by me, sent to lab. Inserted saline lock: 20 gauge in right vk antecubital area, using aseptic technique. Blood collected. Flushed with 10 mL NS. 06:59 CBC with Diff Sent. vk 07:00 CMP Sent. vk 07:00 Lipase Sent. vk 07:02 Attending Physician role handed off by Bryon Arredondo MD rn 07:02 Yaya Jacob MD is Attending Physician. rn 07:09 Jory Levi, SAMIR is Primary Nurse. aa5 07:20 No provider procedures requiring assistance completed. aa5 08:20 IV discontinued, intact, bleeding controlled, No redness/swelling at site. Pressure aa5 dressing applied. Administered Medications: 06:59 Drug: Famotidine IVP 20 mg IVP once; dilute with 10 mL 0.9% NaCl; give over 2 minutes lg3 Route: IVP; Site: right antecubital; 07:10 Follow up: Response: No adverse reaction aa5 06:59 Drug: Ondansetron IVP 4 mg IVP once; over 2 minutes Route: IVP; Site: right antecubital;lg3 07:10 Follow up: Response: No adverse reaction aa5 06:59 Drug: morphine IVP or IV 4 mg IVP once over 4 mins Route: IVP; Infused Over: 4 mins; lg3 Site: right antecubital; 07:10 Follow up: Response: No adverse reaction aa5 06:59 Drug: NS 0.9% IV 1000 ml IV at 1 bolus Per protocol; to be given as a bolus over 60 lg3 minutes Route: IV; Rate: 1 bolus; Site: right antecubital; 07:59 Follow up: IV Status: Completed infusion; IV Intake: 1000ml aa5 08:22 Drug: Diphenoxylate-Atropine PO 2 tabs PO once Route: PO; aa5 08:22 Follow up: Response: No adverse reaction; Medication administered at discharge. aa5 Medication: 07:20 VIS not applicable for this client. aa5 Intake: 07:59 IV: 1000ml; Total: 1000ml. aa5 Outcome: 08:04 Discharge ordered by . rn 08:20 Discharged to home ambulatory, aa5 08:20 Condition: stable 08:20 Discharge instructions given to patient, Instructed on discharge instructions, follow up and referral plans. medication usage, Demonstrated understanding of instructions, follow-up care, medications, Prescriptions given X 1, 08:23 Patient left the ED. aa5 Signatures: Bryon Arredondo MD MD cha Nieto, Roman, MD MD rn Calderon, Audri RN RN aa5 Krystin Robles, SAMIR RN ken3 Lilliana Guy 2 Pricila Bill
[2025-01-21] MEDS ORDERED: DIPHENOX/ATROP SULF 1 TAB PO ONE (08:14)
[2025-01-21 08:31] VITALS: BP 154/84; TEMP 97.8; O2SAT 100
== END 2025-01-21 08:23 | disposition home or self-care (01) ==
LOC: ER 06:39
DX: R19.7 Diarrhea, unspecified (principal)
CPT/HCPCS: 36415; 80053; 83690; 85025; 96361; 96374; 96375; 99284; J2405; J7030

== ENCOUNTER 2025-04-30 23:46 | Emergency (ER) | payer SELFPAY ==
--- OUTSIDE RECORDS SUMMARY | 2025-04-30 23:49 | XMS REPORT | Continuity of Care Document ---
Author Name Unknown Address [address] [facility] [address] [place] [address] [facility] [place] Address [address] [facility] [address] [place] [address] Care Team Providers Care Crew Chief Name Role Phone PCP, PATIENT DOES NOT HAVE A Primary Care Physic nery Unavailable [employer] Attending Clinician Unavail able [employer] CLE[employer] Attending Clinician Unavail able Payers Payer Name Policy Type Policy Number Effective Date Expirati on Date Source Allergies, Adverse Reactions, Alerts Allergy Name Allergy Type Status Severity Reaction(s) Onset Date Inactive Date Treating Clinician Comments Source Penicill ins DA Active U 09-16 00:00: 00 [facility] PENICILL INS Drug Class Active Other-Cmnt 04-15 00:00: 00 [facility] Penicill ins Propensi ty to adverse reaction s Active Other - See comments 04-15 00:00: 00 Legs turned red [facility] Social History Social Habit Start Date Stop Date Quantity Comments Source [facility] Sex assigned at 2000 00:00:00 2000 00:00:00 [facility] Smoking Status Start Date Stop Date Source Tobacco smoking consumption unknown [facility] Medications Ordered Medication Name Filled Medication Name Start Date Stop Date Current Medication? Ordering Clinician Indication Dosage Frequency Signature (SIG) Comments Components Source dexmethylph enidate (FOCALIN) 5 mg tablet 03-03 21:28: 57 Yes 5mg Take 5 mg by mouth daily. [facility] Vital Signs Vital Name Observation Time Observation Value Comments Rico marie Diastolic blood pressure 2025-03-04 01:50:00 94 mm[Hg] [facility] Heart rate 2025-03-04 01:50:00 115 /min [facility] Body temperature 2025-03-04 01:50:00 37 Katie [facility] Respiratory rate 2025-03-04 01:50:00 18 /min [facility] Body height 2025-03-04 01:50:00 177.8 cm [facility] Body weight 2025-03-04 01:50:00 95.255 kg [facility] BMI 2025-03-04 01:50:00 30.13 kg/m2 [facility] Oxygen saturation in Arterial blood by Pulse oximetry 2025-03-04 01:50:00 98 /min [facility] Systolic blood pressure 2025-03-04 01:50:00 139 mm[Hg] [facility] Encounters Start Date/Time End Date/Time Encounter Type Admission Type Attending Clinicians Care Facility Care Department Encounter ID Source 2025-03-03 20:54:00 2025-03-03 21:28:00 Emergency X [employer]ANE CLEANING SHEENA [facility] ERT [id number] [facility] Notes Date/Time Note Provider Source 2025-03-03 21:26:49 Provider called for patient in lobby twice. No answer. Ana M Vergraa RN [facility] - Health 2025-03-03 20:50:20 Patient comes in with vomiting last night, woke up this morning and has cramping, and weakness. Skin p/w/d, rr equal and non labored A&Ox4. Josefina Cooley RN [facility] 2025-03-03 20:46:00 Pt called from stephenie no answer at this time. Heather Gomez RN [facility] 2018-09-17 10:49:00 [id number] [facility] [address] [place], [place] [address] PATIENT NAME: RADHA CHOWDARY ADMIT DATE: 09/16/18 ACCOUNT NO: [id number] ROOM NO: [id number] AGE: 18 SEX: M ADMITTING PHYSICIAN: Radha Villalpando MD ATTENDING PHYSICIAN: Radha Villalpando MD DATE: 09/17/2018 PEDIATRIC OTOLARYNGOLOGY PROGRESS NOTE POSTOPERATIVE DAY #1 BRIEF HISTORY: Radha has done well overnight after incision and [...] Dallas Dinero III, MD WT: PN:MEGHA/ELSA. Conf#: [id number]/DID#: [id number] Authenticated by Dallas Dinero MD On 09/29/2018 06:10:52 PM at 1811 PATIENT NAME: RADHA CHOWDARY [facility] 2018-09-16 17:01:00 [id number] [facility] [address] [place], [place] [address] PATIENT NAME: RADHA CHOWDARY ADMIT DATE: 09/16/18 ACCOUNT NO: [id number] ROOM NO: [facility] AGE: 18 SEX: M ADMITTING PHYSICIAN: Radha Villalpando MD ATTENDING PHYSICIAN: Radha Villalpando MD OPERATION DATE: 09/16/2018 PREOPERATIVE DIAGNOSIS: Large right peritonsillar abscess. POSTOPERATIVE DIAGNOSIS: Large right peritonsillar abscess. PROCEDURE PERFORMED: Incision and drainage of right peritonsillar abscess. SURGEON: Dallas Dinero III, MD RESIDENT HALL DIRECTOR: ANESTHESIA: General anesthesia. COMPLICATIONS: No complications. ESTIMATED BLOOD LOSS: Less than 5 mL. SPECIMENS: Aerobic culture, right peritonsillar abscess. INDICATIONS: The patient is a 18-year-old with a 5- to 8-day history of progressively worsening sore throat. He was started on Zithromax, but did not improve. He was evaluated at the [facility] in [place], but none of the 3 ear, nose, and throat surgeons in [place] were available to care for this youngster. Therefore, he was transferred to the [facility]. A preoperative CT scan showed a large [...] cavity were copiously irrigated with saline solution. [place] sump tube was passed through the esophagus into the stomach to PATIENT NAME: RADHA CHOWDARY drain stomach contents. Good hemostasis was present. He was awakened from general anesthesia and extubated in the operating room. He tolerated the procedure well. It should be noted that before going to the operating room, he received intravenous antibiotics and dexamethasone. Dictated By: Dallas Dinero III, MD WT: OP:MEGHA/ Conf#: [id number]/DID#: [id number] Authenticated by Dallas Dinero MD On 09/29/2018 06:10:42 PM at 1811 PATIENT NAME: RADHA CHOWDARY [facility] 2018-09-16 16:21:00 [id number] [place] [id number] PATIENT NAME: RADHA CHOWDARY ADMIT DATE: 09/16/18 ACCOUNT NO: [id number] ROOM NO: [facility] AGE: 18 SEX: M ADMITTING PHYSICIAN: Radha Villalpando MD ATTENDING PHYSICIAN: Radha Villalpando MD CONSULTATION DATE: 09/16/2018 CONSULTING PHYSICIAN: Dallas Dinero III, MD PEDIATRIC OTOLARYNGOLOGY CONSULTATION CHIEF COMPLAINT: Sore throat and difficulty swallowing. HISTORY OF PRESENT ILLNESS: The patient is a 18-year-old with a 5-day history of gradually worsening sore throat and difficulty swallowing. He was seen by a physician in the [facility] and started on azithromycin or Zithromax a couple of days ago with no improvement. When he was not improving, he was seen at the hospital facility in [facility]. He was assessed there and found to have a right peritonsillar abscess by CT scan. Local ear, nose, and throat surgeons of which there are 3 in the [facility] were called, but none of them appeared to be available for this procedure. Therefore, he was transferred to the [facility]. PAST MEDICAL HISTORY: There is no significant past history of recurring sore throats. ____ in the hospital otherwise and no other ongoing illnesses. PAST SURGICAL HISTORY: Unremarkable except for a knee reconstruction procedure in July 2018 that has gone well and he had no anesthetic problems. MEDICATIONS: He had a dose of vancomycin in [place] and a dose of clindamycin here with [...] his examination were unremarkable. ASSESSMENT: PATIENT NAME: RADHA CHOWDARY 1. Right peritonsillar abscess with no [...] Dallas Dinero III, MD WT: CON:MEGHA/ELSA. Conf#: [id number]/DID#: [id number] Authenticated by Dallas Dinero MD On 09/29/2018 06:10:46 PM at 1811 PATIENT NAME: RADHA CHOWDARY [facility]
[2025-05-01] MEDS ORDERED: NA CHLORIDE 0.9% 1,000 ML ONE (00:06)
[2025-05-01 00:26] LABS: Absolute Lymphocytes (CBC) 2.4 K/uL (0.7-4.9); Hematocrit 40.3 % (39.6-49.0); Hemoglobin 13.8 g/dL (13.6-17.9); MCH 28.6 pg (27.0-35.0); MCHC 34.3 g/dL (32.0-36.0); MCV 83.5 fL (80-100); MPV 8.8 fL (7.6-11.3); Nucleated RBC Absolute Count 0.0 (0-0); Nucleated Red Blood Cells % 0.1 % (0-0); RBC Red Blood Cell Count 4.82 M/uL (4.33-5.43); White Blood Count 8.70 thou/uL (4.3-10.9)
[2025-05-01 00:43] LABS: ALT/SGPT 28.0 U/L (16-61); AST/SGOT 13.0 U/L (15-37); Anion Gap 9.0 mEq/L (5.0-15.0); BUN Blood Urea Nitrogen 13.0 mg/dL (7-18); Glucose Level 116.0 mg/dL (74-106); Potassium 4.0 mEq/L (3.5-5.1)
[2025-05-01 00:44] LABS: Albumin 3.5 g/dL (3.4-5.0); Albumin/Globulin Ratio 1.0 (1.1-1.8); Alkaline Phosphatase 56.0 U/L (45-117); Globulin 3.4 g/dL (2.3-3.5); Lipase 19.0 U/L (13-75)
--- NOTE | 2025-05-01 00:52 | ER ---
Nurse's Notes [facility] Name: Kevin Tinoco Age: 24 yrs Sex: Male : 2000 Arrival Date: 04/30/2025 Time: 23:46 Bed 15 Private MD: Diagnosis: Diarrhea, unspecified Presentation: 04/30 23:56 Chief complaint: Patient states: PT C/O INTERMITTENT ABDOMINAL PAIN WITH DIARRHEA. PT br2 DENIES N/V/F FOR THE LAST 2 DAYS. Coronavirus screen: Client denies travel out of the [place] in the last 14 days. Ebola Screen: Patient denies exposure to infectious person. Initial Sepsis Screen: Does the patient meet any 2 criteria? No. Patient's initial sepsis screen is negative. Does the patient have a suspected source of infection? No. Patient's initial sepsis screen is negative. Risk Assessment: Do you want to hurt yourself or someone else? Patient reports no desire to harm self or others. Onset of symptoms was April 29, 2025. 23:56 Method Of Arrival: Ambulatory br2 23:56 Acuity: STERLING 3 br2 Triage Assessment: 05/01 00:03 General: Appears in no apparent distress. uncomfortable, Behavior is calm, cooperative. br2 GI: Reports lower abdominal pain, upper abdominal pain, cramping, diarrhea. Historical: - Allergies: 00:03 PENICILLINS; br2 - PMHx: 00:03 ADD/ADHD; br2 - PSHx: 00:03 R ACL repair; br2 - Immunization history:: Adult Immunizations up to date. - Infectious Disease History:: Denies. - Social history:: Smoking status: Reported history of juuling and/or vaping. Patient/guardian denies using alcohol, street drugs. Screenin/18 23:56 [facility] ED Fall Risk Assessment (Adult) History of falling in the last 3 months, jj7 including since admission No falls in past 3 months (0 pts) Confusion or Disorientation No (0 pts) Intoxicated or Sedated No (0 pts) Impaired Gait No (0 pts) Mobility Assist Device Used No (0 pt) Altered Elimination No (0 pt) Score/Fall Risk Level 0 - 2 = Low Risk Oriented to surroundings, Maintained a safe environment, Educated pt \T\ family on fall prevention, incl call for assistance when getting out of bed, Assessed \T\ reinforced patient's understanding of fall precautions. Abuse screen: Denies threats or abuse. Nutritional screening: No deficits noted. Tuberculosis screening: No symptoms or risk factors identified. Assessment: 23:56 General: Appears in no apparent distress. comfortable, Behavior is calm, cooperative, jj7 appropriate for age. Pain: Denies pain. GI: Abdomen is flat, Abd is soft and non tender X 4 quads. Reports cramping, diarrhea. Vital Signs: 23:56 BP 124 / 69; Pulse 60; Resp 18; Temp 98.1; Pulse Ox 100% ; Weight 88.45 kg; Height 5 br2 ft. 9 in. ; Pain 6/10; 05/01 01:05 BP 106 / 56; Pulse 55; Resp 20; Temp 97.8; Pulse Ox 100% ; Pain 0/10; jj7 04/30 23:56 Body Mass Index 28.80 (88.45 kg, 175.26 cm) br2 04/30 23:56 Pain Scale: Adult br2 05/01 01:05 Pain Scale: Adult jj7 ED Course: 04/30 23:48 Patient arrived in ED. jj6 23:48 Yaquelin Fritz [facility]C [facility] kb 23:48 Alexandru Crawford MD is Attending Physician. kb 23:56 Sami Lay, SAMIR is Primary Nurse. jj7 23:56 Patient has correct armband on for positive identification. Bed in low position. Call jj7 light in reach. Provided Education on: USE OF CALL DAVIDSON. 05/01 00:03 Triage completed. br2 00:03 Splint/sling/ice applied as appropriate. br2 00:06 Inserted saline lock: 20 gauge in right antecubital area, using aseptic technique. oe Blood collected. Flushed with 10 mL NS. 00:07 Lipase Sent. oe 00:07 CBC with Diff Sent. oe 00:07 CMP Sent. oe 01:28 No provider procedures requiring assistance completed. IV discontinued, intact, jj7 bleeding controlled, No redness/swelling at site. Pressure dressing applied. Administered Medications: 00:08 Drug: NS 0.9% IV 1000 ml IV at 1 bolus Per protocol; to be given as a bolus over 60 jj7 minutes Route: IV; Rate: 1 bolus; Site: right antecubital; 01:10 Follow up: IV Status: Completed infusion jj7 Medication: 04/30 23:56 VIS not applicable for this client. jj7 Outcome: 05/01 00:51 Discharge ordered by MD. combs 01:29 Discharged to home ambulatory, with family, j 01:29 Condition: improved 01:29 Discharge instructions given to patient, Instructed on discharge instructions, Demonstrated understanding of instructions, 01:32 Patient left the ED. jj7 Signatures: Yaquelin Fritz, COMPENSATION MANAGER-C COMPENSATION MANAGER-Ckb Ryland Paredes Jennifer jj6 Sami Lay RN RN jj7 Shazia Marte RN RN br2 Corrections: (The following items were deleted from the chart) 01:28 01:27 BP 106 / 56; Pulse 55bpm; Resp 20bpm; Pulse Ox 100%; Temp 97.8F; Pain 0/10, jj7 Adult; jj7
--- NOTE | 2025-05-01 00:52 | EDPHYS ---
Physician Documentation [facility] Name: Kevin Tinoco Age: 24 yrs Sex: Male : 2000 Arrival Date: 04/30/2025 Time: 23:46 Bed 15 Private MD: ED Physician Alexandru Crawford HPI: 04/30 23:54 This 24 yrs old Male presents to ER via Unassigned with complaints of Abdominal Pain, kb Diarrhea. 23:54 Pt is a 24 year old male who presents for diarrhea for 2 days. Denies n/v, fever, abd kb pain. . Historical: - Allergies: 05/01 00:03 PENICILLINS; br2 - PMHx: 00:03 ADD/ADHD; br2 - PSHx: 00:03 R ACL repair; br2 - Immunization history:: Adult Immunizations up to date. - Infectious Disease History:: Denies. - Social history:: Smoking status: Reported history of juuling and/or vaping. Patient/guardian denies using alcohol, street drugs. ROS: 04/30 23:54 Constitutional: As per HPI kb Exam: 23:54 Constitutional: This is a well developed, well nourished patient who is awake, alert, kb and in no acute distress. Head/Face: Normocephalic, atraumatic. ENT: Moist Mucous membranes Cardiovascular: Regular rate Respiratory: Respirations even and unlabored. No increased work of breathing. Talking in full sentences Abdomen/GI: Soft, non-tender. No distention Skin: Warm, dry with normal turgor. Normal color. MS/ Extremity: Pulses equal, no cyanosis. Neurovascular intact. Full, normal range of motion. Neuro: Awake and alert, GCS 15, oriented to person, place, time, and situation. Vital Signs: 23:56 BP 124 / 69; Pulse 60; Resp 18; Temp 98.1; Pulse Ox 100% ; Weight 88.45 kg; Height 5 br2 ft. 9 in. ; Pain 6/10; 05/01 01:05 BP 106 / 56; Pulse 55; Resp 20; Temp 97.8; Pulse Ox 100% ; Pain 0/10; jj7 04/30 23:56 Body Mass Index 28.80 (88.45 kg, 175.26 cm) br2 04/30 23:56 Pain Scale: Adult br2 05/01 01:05 Pain Scale: Adult jj7 MDM: 04/30 23:49 Medical Screening Exam initiated 23:55 Data reviewed: vital signs, nurses notes. 05/01 00:50 Differential diagnosis: Nonspecific abd pain, diverticulitis, viral gastroenteritis. I kb considered the following discharge prescriptions or medication management in the emergency department I discussed and recommended Over The Counter medications, Antibiotics: At this time antibiotics are not recommended. Test considered but Not performed: CT: ct abd considered but labs reassuring, no abd pain or tenderness. Counseling: I had a detailed discussion with the patient and/or guardian regarding the historical points, exam findings, and any diagnostic results supporting the discharge/admit diagnosis, lab results, the need for outpatient follow up, a family practitioner, to return to the emergency department if symptoms worsen or persist or if there are any questions or concerns that arise at home. 04/30 23:53 Order name: CBC with Diff; Complete Time: 00:31 kb 04/30 23:53 Order name: CMP; Complete Time: 00:44 kb 04/30 23:53 Order name: Lipase; Complete Time: 00:44 kb 04/30 23:54 Order name: IV Saline Lock; Complete Time: 00:07 kb 04/30 23:54 Order name: Labs collected and sent; Complete Time: 00:07 kb Administered Medications: 00:08 Drug: NS 0.9% IV 1000 ml IV at 1 bolus Per protocol; to be given as a bolus over 60 jj7 minutes Route: IV; Rate: 1 bolus; Site: right antecubital; 01:10 Follow up: IV Status: Completed infusion jj7 Disposition: 06:54 Co-signature as Attending Physician, Alexandru Crawford MD I agree with the assessment sp4 and plan of care. I reviewed the patient's care provided by the Advanced Practice Provider and agree with the diagnosis and treatment plan. Disposition Summary: 05/01/25 00:51 Discharge Ordered Notes: Location: Home kb Condition: Stable kb Diagnosis - Diarrhea, unspecified kb Followup: kb - With: Emergency Department - When: As needed - Reason: Worsening of condition Followup: kb - With: Private Physician - When: 2 - 3 days - Reason: Recheck today's complaints, Continuance of care, Re-evaluation by your physician Discharge Instructions: - Discharge Summary Sheet kb - Food Choices to Help Relieve Diarrhea, Adult kb - Diarrhea, Adult, [id number] kb Forms: - Medication Reconciliation Form kb - Antibiotic Education kb - Prescription Opioid Use kb - Patient Portal Instructions kb - Leadership Thank You Letter kb - Work release form jj7 Signatures: Dispatcher [employer] Yaquelin Mathews, VINCENZO-C VINCENZO-Sami Malone RN RN jj7 Alexandru Crawford MD MD sp4 Shazia Marte RN RN br2
== END 2025-05-01 01:32 | disposition home or self-care (01) ==
LOC: ER 23:46
DX: R19.7 Diarrhea, unspecified (principal)
CPT/HCPCS: 36415; 80053; 83690; 85025; J7030